=== PATIENT | female | born 1960 | race Caucasian/White ===

== ENCOUNTER 2020-01-18 16:08 | Outpatient (REF) | payer BC, SELFPAY ==
--- NOTE | 2020-01-18 14:30 | PAPFT_PTH ---
PATIENT: Belinda Chiu LOC: [facility] U#:[id number] AGE/SX: 59/F ROOM: RE01/18/[address]: Phylicia Zabala MD, DC : 1960 BED: DIS: 01/18/2020 SPEC #: [id number] RECD: 01/19/20 12:58 STATUS: YAO REQ #: [id number] FLORENCIO: 01/18/20 14:[address]: Phylicia Zabala DEPT: [facility] Cytology RECD BY: Priscilla Castanon Tissues: 1 - CX/ENDOCX FOR PAP SMEARS Procedures: PAP THIN PREP/UVM Screening HPV DNA PROBE Comments: [id number]
== END 2020-01-18 16:28 ==
LOC: LBN 16:08
PROVIDERS: PCP Family Medicine; Visit Provider Family Medicine
DX: Z12.4 Encounter for screening for malignant neoplasm of cervix (principal); Z11.51 Encounter for screening for human papillomavirus (HPV); R87.610 Atypical squamous cells of undetermined significance on cytologic smear of cervix (ASC-US)
CPT/HCPCS: 88142; 87624

== ENCOUNTER 2020-03-28 00:18 | Outpatient (CLI) | payer BC, SELFPAY ==
--- NOTE | 2020-03-28 08:16 | DI.RAD_ITS ---
EXAM: XR CHEST 2V PA LATERAL CLINICAL HISTORY: cough and wheezing,R05,R06.2 TECHNIQUE: 2D digital imaging was performed. COMPARISON: CHEST 2 VIEWS PA,LAT from 04/15/2016 FINDINGS: The heart is not enlarged. The lungs are clear and well expanded. No pleural effusion seen. Mediastin al contours appear intact. IMPRESSION: Normal chest
== END 2020-03-28 00:38 ==
PROVIDERS: PCP Family Medicine; Visit Provider Family Medicine
DX: R05 Cough (principal); R06.2 Wheezing
CPT/HCPCS: 71046

== ENCOUNTER 2020-09-07 15:07 | Emergency (ER) | payer BC, SELFPAY ==
[2020-09-07] VITALS (42 sets, daily range): BP systolic 118–158; BP diastolic 61–95; PULSE 56–84; RESP 9–27; TEMP 36.2–36.4; O2SAT 96–100
--- NOTE | 2020-09-07 15:00 | RT.EKG_ITS ---
APPROVED REPORT Exam: Resting ECG Patient Location: E HR:56 bpm ECG Measurements Heart Rate 56 AXIS CA 171 P 42 QRSd 85 QRS 30 QT 399 T 36 QTc 387 Conclusion Sinus bradycardia...rate< 60
--- NOTE | 2020-09-07 15:21 | ED.GENADUL_ITS ---
Discharge Plan Disposition Patient Disposition: HOME Condition: Stable Discharge Details Clinical Impression: Chest pain, Epigastric abdominal pain Primary Care Provider: Phylicia Zabala ED Provider: Darnell Haney Home Meds and New Rx's Prescriptions: Continued fluoxetine 20 mg capsule 20 mg PO DAILY Qty: 90 RF: 5 albuterol sulfate [ProAir HFA] 8.5 GM HFA aerosol inhaler 2 puff Inhalation Q4H PRN Qty: 1 RF: 12 aspirin 81 MG tablet,chewable 81 mg PO DAILY RF: 0 methylphenidate HCl 10 mg tablet 10 mg PO TID MDD 3 Qty: 90 RF: 0 multivitamin [Daily Multi-Vitamin] 1 EACH tablet 1 ea PO DAILY RF: 0 Discharge Instructions Instructions: Chest Pain (ED), Epigastric Pain (ED) Additional Instructions: At this time your pain has nearly completely resolved, you have remained hemodynamically stable, and your blood work, EKG, x-ray were unremarkable here in the ER. As we discussed, you will be discharged from the ER but are encouraged to return to the ER for new or worsening symptoms. Otherwise I would like you to contact your primary care provider tomorrow for prompt outpatient reevaluation. For further evaluation of possible cardiac etiology, outpatient echocardiogram and stress test may be indicated. As we discussed this may be GI related, outpatient referral to surgery and endoscopy may be beneficial Discharge Data Discharge Date/Time-TO BE ENTERED AT DEPARTURE: 09/07/20 19:39 Medical Decision Making <Kelly Nation - Last Filed: 09/09/20 08:30> 60-year-old female presents to the ED with chief complaint of chest pain which began last night around 9:00 PM. Patient describes pain as tightness midsternal which radiates into her mid epigastrium. She states she took 2 Tums and a Za ntac last night and another Zantac this morning which did relieve her pain somewhat. She is a non-smoker, has no past medical history of coronary artery disease, hypertension or anything else. He does take a baby aspirin daily she did take a chewable baby aspirin last night. She was sent here from [facility] for further work-up. She does have a history of factor V Leiden mutation. Cardiac work-up ordered at this time and is pending. D-dimer added on also to rule out PE. EKG was reviewed by [Dr. Risa FELICIANO] ER attending, please see his official reading, normal sinus rhythm sinus bradycardia no STEMI. No old available for review. Care to be handed off to Darnell KIRBY, case discussed, verbalized understanding. <KOFI Obregon - Last Filed: 09/07/20 19:23> I assumed care of this pleasant 60-year-old female at shift change from my colleague REGGIE Nation. Please see her initial HPI and examination for full presentation. In short she developed substernal and epigastric discomfort last night around 9:00. Nothing makes it worse. She took iowj-rga-fdsytbr antacids and reports that her pain went from a 7 or 8 down to a 3. Currently she reports a 2 out of 10 dull tightness. She has never had this before. She is otherwise asymptomatic. Upon my initial evaluation and reviewing her past medical history, she does fall into the low category of the heart score. Work-up has already been initiated and at the moment awaiting a d-dimer. Clinically patient appears well, nontoxic. Head normocephalic, moist mucous membranes, lungs clear to auscultation, heart regular rate and rhythm, abdomen soft, nontender, normal pedal pulses, without calf tenderness or swelling. White blood cell count of 5.58 hemoglobin 13.4 hematocrit 40.9 platelet count 229. D-dimer 483. Electrolytes unremarkable. Creatinine 1.14 with an estimated GFR 48.62. Glucose 101 calcium 9.3 magnesium 2.2 LFTs unremarkable. Initial troponin 0 0.05. Chest x-ray unremarkable per radiology. Initial EKG reveals a sinus bradycardia, ventricular rate 56. No STEMI. I discussed the work-up with patient. She is agreeable to try a GI cocktail as well as await a 3-hour troponin and EKG. Patient given the GI cocktail and approximately 5 minutes later I was called into the room, she reports that her throat feels numb. She is able to manage her secretions, she speaks normally, no respiratory distress. Lips, tongue, pharynx without swelling. Airway patent. No erythema or rash. I discussed with the patient that this is likely the effects of the medication and not an allergy. Will hold off on any Benadryl at this point. Patient was reassessed in approximately 10 minutes, remained stable. No signs of allergic reaction or decompensation. Repeat troponin remains less than 0.05. Repeat EKG obtained, please see official report by Dr. Lord. Sinus rhythm, ventricular rate of 62, no STEMI. Upon reassessment patient is resting comfortably and using her iPad. She reports that her pain is essentially gone, barely noticeable, now a 0.5 out of 10. She appears well, nontoxic. Remains hemodynamically stable. We discussed options. Patient is comfortable discharge home at this time. She will contact her primary care provider tomorrow for prompt outpatient reevaluation. We discussed that outpatient stress test and or echocardiogram may be indicated. Referral to general surgery for endoscopy may also be indicated. She was encouraged to return to the ER for new or worsening symptoms and return to the ER for any concerns. She will continue taking her baby aspirin daily. Medical Records Medical records reviewed: Yes I reviewed the patient's medical records. Imaging Data Radiologic Study: Attestation: I personally reviewed and interpreted this imaging study as f juana: Imaging: X-Ray Radiologist's impression: Chest x-ray negative Lab Data Lab results reviewed: Yes I reviewed the patient's lab results. Labs: Laboratory Tests Range/Units 09/07/20 09/07/20 09/07/20 15:13 15:13 15:13 WBC (4.4-10.8) 10^3/uL 5.58 RBC (3.93-5.22) 10^6/uL 4.74 Hgb (11.2-15.7) g/dL 13.4 Hct (36.0-46.0) % 40.9 MCV (80-95) fL 86.3 MCH (27.0-33.0) pg 28.3 MCHC (32.0-36.0) % 32.8 RDW (11.7-14.6) % 12.6 Plt Count (130-400) 10^3/uL 229 MPV (8.0-11.0) fL 10.1 Immature Gran % 0.2 Neutrophils % 55.2 Lymphocytes % 37.1 Monocytes % 6.3 Eosinophils % 0.7 Basophils % 0.5 Nucleated RBC % % 0 Absolute Neutrophils (1.2-6.7) 10^3/uL 3.08 Absolute Lymphocytes (1.2-3.4) 10^3/uL 2.07 Absolute Monocytes (0.1-0.8) 10^3/uL 0.35 Absolute Eosinophils (0.0-0.7) 10^3/uL 0.04 Absolute Basophils (0.0-0.2) 10^3/uL 0.03 D-Dimer (<500) ng/mlFEU 483 Sodium (136-145) mmol/L 141 Potassium (3.5-5.1) mmol/L 4.1 Chloride (98-107) mmol/L 102 Carbon Dioxide (21.0-32.0) mmol/L 30.4 Anion Gap (3-11) mmol/L 8.6 BUN (7-18) mg/dL 17 Creatinine (0.55-1.02) mg/dL 1.14 H Estimated GFR/1.73 m2 (mL/min/1.73m2) 48.62 Glucose (74-106) mg/dL 100 Calcium (8.5-10.1) mg/dL 9.3 Magnesium (1.8-2.4) mg/dL 2.2 Total Bilirubin (0.2-1.0) mg/dL 0.5 AST (15-37) U/L 16 ALT (14-59) U/L 26 Alkaline Phosphatase (46-116) U/L 71 Troponin I (<0.06) ng/mL < 0.05 Total Protein (6.4-8.2) g/dL 7.8 Albumin (3.4-5.0) g/dL 4.2 HPI <Kelly Nation - Last Filed: 09/09/20 08:30> General Mode of arrival: ambulatory . Date/Time Provider Initiated Documentation: 09/07/20 15:10 . Limitations to Documentation: no limitations . Information obtained by: patient . HPI Narrative: 60-year-old female presents to the ED with chief complaint of chest pain which began last night around 9:00 PM. Patient describes pain as tightness midsternal which radiates into her mid epigastrium. She states she took 2 Tums and a Zantac last night and another Zantac this morning which did relieve her pain somewhat. She is a non-smoker, has no past medical history of coronary artery disease, hypertension or anything else. He does take a baby aspirin daily she did take a chewable baby aspirin last night. She was sent here from [facility] for further work-up. She does have a history of factor V Leiden mutation. Related Data Home Medications Medication Instructions Recorded Confirmed multivitamin [Daily Multi-Vitamin] 1 ea PO DAILY 05/06/14 09/07/20 albuterol sulfate [ProAir HFA] 2 puff INHALATION Q4H PRN #1 08/19/16 09/07/20 inhaler aspirin 81 mg PO DAILY tab-cap 03/18/17 09/07/20 fluoxetine 20 mg capsule 20 mg PO DAILY #90 tab-cap 01/18/20 09/07/20 methylphenidate HCl 10 mg tablet 10 mg PO TID #90 tab MDD 3 07/09/20 09/07/20 Previous Rx's Medication Instructions Recorded fluoxetine 20 mg capsule 20 mg PO DAILY #90 tab-cap 01/18/20 methylphenidate HCl 10 mg tablet 10 mg PO TID #90 tab MDD 3 07/09/20 Allergies Allergy/AdvReac Type Severity Reaction Status Date / Time doxycycline Allergy Intermediate RASH Verified 09/07/20 15:21 W/ITCHING ALL OVER Sulfa (Sulfonamide Allergy Unknown SWELLING Verified 09/07/20 15:21 Antibiotics) General Stated Complaint: Chest Pain THERON: 2 Review of Systems <Kelly Nation - Last Filed: 09/09/20 08:30> Narrative: Constitutional: Negative for weight loss, alert and oriented, well groomed, normal body habitus, appears comfortable. HEENT: Denies trauma, headaches, blurry vision, nasal discharge, sore throat, trouble swallowing. Chest: Denies palpitations, irregular rhythm, hypertension. Positive chest pain described as midsternal which radiates into her midepigastrium. Respiratory: Denies Shortness of breath, cough, hemoptysis. GI: Denies abdominal pain, nausea, vomiting, diarrhea, constipation. : Denies dysuria, hematuria, flank pain, rectal bleeding. Neuro: Denies dizziness, blurry vision, weakness, syncope, headache or facial numbness. Hematologic: Denies intolerance to heat or cold, hair loss. Does have a history of factor V Leiden. 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) Degeneration of cervical intervertebral disc (03/03/08) Cervical MRI-DDD showing neuroforaminal encroachment C3-4 on left; C6-7 on right Depressive disorder Family history of factor V Leiden mutation (02/19/16) she has 1 copy of gene 1 miscarriage will consider hematology consult Fatigue Lipoma right thigh posterior Neuropathy (08/28/15) Polyp of colon 12/17/10; TUBULAR ADENOMA 05/06/14; NEG Right hip pain (01/06/18) Urinary, incontinence, stress female urinary frequency; Urologist recommended sling procedure Uterine leiomyoma (03/03/08) Surgical History bunionectomy b/l eye surgery 3 eye surgeries for alignment, central serous retinopathy Tonsillectomy and adenoidectomy Family History Mother Blind one eye Substance abuse FORMER Essential hypertension Depression Hyperlipidemia Father Essential hypertension Heart disease Hyperlipidemia Neoplasm BLADDER Stroke Brother Depression Brother Factor 5 Leiden mutation, heterozygous Grandfather Essential hypertension Heart disease Hyperlipidemia Neoplasm PROSTATE Grandfather Heart disease Myocardial infarction Stroke Grandmother Essential hypertension Heart disease Stroke Grandmother Heart disease Myocardial infarction Son Depression Son Depression Daughter No problems noted. Social History Smoking/Tobacco Use Status: Never Alcohol Intake: current Alcohol Intake frequency: a few times a week Drug use: Never Substance use type: does not use Household members: other Details: 4 current occupation: Self employed Duration: 30-45 minutes/day Frequency: 3-4 times per week Yanira/Roman Catholic: Alevism Special yanira needs: No Do you feel safe at home: Yes Do you feel safe in your relationship?: Yes Exam <Kelly Nation - Last Filed: 09/09/20 08:30> Narrative Exam Narrative: Constitutional: Alert and oriented x3. Appears stated age. Normal body habitus. Head: Normocephalic, no trauma. Eyes: Pupils PERRLA, Red reflex noted, EOM's intact. Eyelids symmetrical without lesions, discharge, or swelling. ENT: Bilateral TM's WNL, External ear normal to inspection, no mastoid TTP, swelling, or erythema, Nasal turbinates WNL, no nasal discharge. Normal dentition, Posterior pharynx WNL, no exudate. Chest: RRR, Normal S1, S2, distal pulses intact. Resp: Lungs clear to auscultation bilaterally, no wheezes, rales, or rhonchi. Musculoskeletal: Normal gait, 5/5 strength to all four extremities. Skin: No suspicious rashes or lesions. Capillary refill less than 2 sec. Neurologic: Cranial nerves II-XII intact. Alert and oriented x 3. DTR's intact. Hematologic/Lymphatic: No ecchymosis, no lymphadenopathy. Course <Kelly Nation - Last Filed: 09/09/20 08:30> Vital Signs Vital signs: Vital Signs Temperature 36.2 C L 09/07/20 15:16 Pulse 71 09/07/20 15:16 Respiratory Rate 15 09/07/20 15:16 Blood Pressure 158/79 H 09/07/20 15:16 Pulse Oximetry 98 09/07/20 15:16 Temperature 36.2 C L 09/07/20 15:16 Temperature Source Temporal Artery Scan 09/07/20 15:16 Pulse 71 09/07/20 15:16 Respiratory Rate 15 09/07/20 15:16 Respiratory Effort Non-Labored 09/07/20 15:20 Blood Pressure 158/79 H 09/07/20 15:16 Blood Pressure Position Supine 09/07/20 15:16 Pulse Oximetry 98 09/07/20 15:16 Oxygen Delivery Method Room Air 09/07/20 15:16 Oxygen Flow Rate 0 09/07/20 15:16 Pain Level 3 09/07/20 15:16 Sign Out <Kelly Nation - Last Filed: 09/09/20 08:30> Sign Out Data: Sign Out Comment: Pending Serial Troponin and Disposition Last updated by Kelly Nation at 09/07/20 16:03
[2020-09-07 15:28] LABS: Abs Immature Grans 0.01 10^3/uL (0.0-0.06); Absolute Basophil Count 0.03 10^3/uL (0.0-0.2); Absolute Eosinophil Count 0.04 10^3/uL (0.0-0.7); Absolute Lymphocyte Count 2.07 10^3/uL (1.2-3.4); Absolute Monocyte Count 0.35 10^3/uL (0.1-0.8); Absolute Neutrophil Count 3.08 10^3/uL (1.2-6.7); Basophils % 0.5; Eosinophils % 0.7; HCT 40.9 % (36.0-46.0); HGB 13.4 g/dL (11.2-15.7); Immature Grans % 0.2; Lymphocytes % 37.1; MCH 28.3 pg (27.0-33.0); MCHC 32.8 % (32.0-36.0); MCV 86.3 fL (80-95); MPV 10.1 fL (8.0-11.0); Monocytes % 6.3; Neutrophils % 55.2; Nucleated RBC 0 %; Platelet Count 229 10^3/uL (130-400); RBC 4.74 10^6/uL (3.93-5.22); RDW 12.6 % (11.7-14.6); RDW-SD 39.8 fL; WBC 5.58 10^3/uL (4.4-10.8)
--- NOTE | 2020-09-07 15:30 | DI.RAD_ITS ---
EXAM: XR PORTABLE CHEST AP CLINICAL HISTORY: Chest pain, PUI. TECHNIQUE: 2D digital imaging was performed. COMPARISON: CR XR CHEST 2V PA LATERAL from 03/28/2020 FINDINGS: LUNGS: Clear. No pleural abnormality seen. HEART: Normal. MEDIASTINUM: Normal. OTHER FINDINGS: None. IMPRESSION: No acute pulmonary findings. DATA REPOSITORY: RADIATION DOSE DELIVERED: Total DLP
[2020-09-07] MEDS: Aspirin 81 MG CHEW 324 MG CH (15:33)
[2020-09-07] MEDS: Aspirin 81 MG CHEW (15:36)
[2020-09-07] MEDS: Normal Saline Flush 10 ML SYR IVP (15:37)
[2020-09-07 15:53] LABS: ALT 26 U/L (14-59); AST 16 U/L (15-37); Albumin 4.2 g/dL (3.4-5.0); Alkaline Phosphatase 71 U/L (46-116); Anion Gap 8.6 mmol/L (3-11); BUN 17 mg/dL (7-18); Bilirubin, Total 0.5 mg/dL (0.2-1.0); CO2 30.4 mmol/L (21.0-32.0); CREATININE 1.14 mg/dL (0.55-1.02); Calcium 9.3 mg/dL (8.5-10.1); Chloride 102 mmol/L (98-107); Estimated GFR 48.62 (mL/min/1.73m2); Glucose 100 mg/dL (74-106); Magnesium 2.2 mg/dL (1.8-2.4); Potassium 4.1 mmol/L (3.5-5.1); Sodium 141 mmol/L (136-145); Total Protein 7.8 g/dL (6.4-8.2)
[2020-09-07 15:54] LABS: Troponin I < 0.05 ng/mL (<0.06)
[2020-09-07 16:19] LABS: D-Dimer 483 ng/mlFEU (<500)
--- NOTE | 2020-09-07 17:05 | NUR.NOTE ---
pt offered meal but declined Nursing Note:
[2020-09-07 18:43] LABS: Troponin I < 0.05 ng/mL (<0.06)
--- NOTE | 2020-09-07 18:45 | RT.EKG_ITS ---
APPROVED REPORT Exam: Resting ECG Patient Location: E HR:62 bpm ECG Measurements Heart Rate 62 AXIS NV 176 P 64 QRSd 80 QRS 33 QT 404 T 32 QTc 411 Conclusion Sinus rhythm...normal P axis, V-rate 60- 99
== END 2020-09-07 19:39 | disposition home or self-care (01) ==
PROVIDERS: Registered Nurse Emergency; Emergency Provider Physician Assistant; PCP Family Medicine
DX: R07.89 Other chest pain (principal); R10.13 Epigastric pain
CPT/HCPCS: 36415; 80053; 93005; 99285; 71045; 83735; 84484; 85025; 85379; 93010; 99284

== ENCOUNTER 2022-03-13 01:15 | Outpatient (CLI) | payer BC, SELFPAY ==
--- NOTE | 2022-03-13 11:21 | DI.MAMMO_ITS ---
Exam(s) MAMMO SCREENING EXAM: MAMMO SCREENING CLINICAL HISTORY: screening,z12.39 TECHNIQUE: Mammograms were interpreted according to the usual protocol including computer analysis w [employer] CAD system, tomosynthesis and C-view imaging. COMPARISON: 2012 through 2015 FINDINGS: The breasts are composed of scattered fibroglandular densities, Breast Density category B. No suspicious masses or suspicious microcalcifications are seen. No skin thickening or abnormal axillary lymph nodes are seen. There has been no significant change from prior exams. IMPRESSION: BI-RADS Category 1, Negative mammogram Yearly screening mammography is recommended. Breast Density - Category B, scattered fibroglandular densities. A negative radiographic report should not delay biopsy if a dominant or clinically suspicious mass is present. Up to ten percent of cancers are not identified on mammography. A negative report may reinforce clinical impression. Adenosis and dense breasts may obscure an underlying neoplasm. False positive reports average 6 to 10%. Patient will receive a letter notifying them of these results.
== END 2022-03-13 01:35 ==
PROVIDERS: PCP Family Medicine; Visit Provider Family Medicine
DX: Z12.31 Encounter for screening mammogram for malignant neoplasm of breast (principal)
CPT/HCPCS: 77063; 77067

== ENCOUNTER → 2022-05-23 02:14 | Outpatient (CLI) | payer BC, SELFPAY ==
--- NOTE | 2022-05-23 08:30 | DI.DEXA_ITS ---
Exam(s) XR DEXA BONE DENSITY W/WO CARYN EXAM: XR DEXA BONE DENSITY W/WO CARYN CLINICAL HISTORY: osteoporosis, Z00.00, ANNUAL PHYSICAL EXAM TECHNIQUE: [employer] Horizon C densitometer analysis of left hip, lumbar spine and left forearm. COMPARISON: No exams were available for comparison FINDINGS: Lateral view of the thoracic and lumbar spine shows no evidence of compression fractures. Bone mineral density measurements of the lumbar spine correspond to a total T-score of 1.5, in the n ormal range. Bone mineral density measurements of the left hip correspond to a total T-score of -0.2. The femora l neck T-score is -1.1, in the mildly osteopenic range.. The left forearm bone mineral density measurements correspond to a T-score of the distal 3rd of -0.1 , in the normal range.. IMPRESSION: Normal bone mineral density of the left forearm and lumbar spine. Mild osteopenia of left hip.
== END ==
PROVIDERS: PCP Family Medicine; Visit Provider Family Medicine
DX: Z00.00 Encounter for general adult medical examination without abnormal findings (principal); M85.88 Other specified disorders of bone density and structure, other site
CPT/HCPCS: 77080

== ENCOUNTER 2022-06-27 03:09 | Outpatient (CLI) | payer BC, SELFPAY ==
[2022-06-27 08:46] LABS: ESR 4 mm/hr (0-30); HCT 38.4 % (36.0-46.0); HGB 12.6 g/dL (11.2-15.7); MCH 28.3 pg (27.0-33.0); MCHC 32.8 % (32.0-36.0); MCV 86 fL (80-95); MPV 10.5 fL (8.0-11.0); Platelet Count 219 10^3/uL (130-400); RBC 4.45 10^6/uL (3.93-5.22); RDW 12.7 % (11.7-14.6); RDW-SD 39.8 fL; WBC 5.12 10^3/uL (4.4-10.8)
[2022-06-27 09:52] LABS: ALT 24 U/L (14-59); AST 19 U/L (15-37); Albumin 3.9 g/dL (3.4-5.0); Alkaline Phosphatase 63 U/L (46-116); Anion Gap 7.1 mmol/L (3-11); BUN 15 mg/dL (7-18); Bilirubin, Total 0.4 mg/dL (0.2-1.0); CO2 29.9 mmol/L (21.0-32.0); CREATININE 1.2 mg/dL (0.55-1.02); Calcium 8.7 mg/dL (8.5-10.1); Calculated LDL 175 mg/dL (<100); Chloride 104 mmol/L (98-107); Cholesterol 248 mg/dL (<200); Estimated GFR 45.52 (mL/min/1.73m2); Glucose 93 mg/dL (74-106); HDL Cholesterol 55 mg/dL (40-60); Sodium 141 mmol/L (136-145); Total Protein 7.2 g/dL (6.4-8.2); Triglyceride 90 mg/dL (<150)
[2022-06-27 20:40] LABS: Rheumatoid Factor 22.3 IU/mL (<12.0)
[2022-06-28 13:37] LABS: Albumin 63.3 % (55.8-66.1); Albumin g/dL 4.4 g/dL (3.6-5.2); Total Protein 6.9 g/dL (6.3-8.2)
[2022-06-28 15:28] LABS: ANA Interpretation Positive (Negative); ANA Titer Pattern 1:80 Speckled
[2022-07-02 13:46] LABS: SS-B (La) Ab, IgG 1.6 Units (<20.0)
[2022-07-02 15:38] LABS: SS-A Antibody 1.2 Units (<20.0)
== END 2022-06-27 03:10 | disposition home or self-care (01) ==
LOC: LBO 03:09
PROVIDERS: PCP Family Medicine; Visit Provider Family Medicine
DX: H04.129 Dry eye syndrome of unspecified lacrimal gland (principal); Z00.00 Encounter for general adult medical examination without abnormal findings
CPT/HCPCS: 36415; 80053; 80061; 85027; 85652; 81003; 84165; 86038; 86235; 86431

== ENCOUNTER 2023-05-19 10:18 | Outpatient (REF) | payer BC, SELFPAY ==
--- NOTE | 2023-05-19 09:30 | PAPFT_PTH ---
PATIENT: Belinda Chiu LOC: [facility] U#:[id number] AGE/SX: 62/F ROOM: RE05/19/[address]: Phylicia Zabala MD, DC : 1960 BED: DIS: 05/19/2023 SPEC #: [id number] RECD: 05/19/23 12:51 STATUS: YAO REMook #: [id number] FLORENCIO: 05/19/23 09:[address]: Phylicia Zabala DEPT: [facility] Cytology RECD BY: Priscilla Castanon Tissues: 1 - CX/ENDOCX FOR PAP SMEARS Procedures: PAP THIN PREP/UVM Screening HPV DNA PROBE Comments: [id number]
== END 2023-05-19 10:19 | disposition home or self-care (01) ==
LOC: LBN 10:18
PROVIDERS: PCP Family Medicine; Visit Provider Family Medicine
DX: Z11.51 Encounter for screening for human papillomavirus (HPV) (principal)
CPT/HCPCS: 88142; 87624

== ENCOUNTER 2023-11-18 08:01 | Outpatient (CLI) | payer BC, SELFPAY ==
[2023-11-18 12:48] LABS: ALT 37 U/L (14-59); AST 22 U/L (15-37); Albumin 3.9 g/dL (3.4-5.0); Alkaline Phosphatase 70 U/L (46-116); Anion Gap 6.3 mmol/L (3-11); BUN 15 mg/dL (7-18); Bilirubin, Total 0.5 mg/dL (0.2-1.0); CO2 29.7 mmol/L (21.0-32.0); CREATININE 1.1 mg/dL (0.55-1.02); Calcium 9.1 mg/dL (8.5-10.1); Calculated LDL 220 mg/dL (<100); Chloride 103 mmol/L (98-107); Cholesterol 321 mg/dL (<200); Estimated GFR 56.46 (mL/min/1.73m2); Glucose 108 mg/dL (74-106); HDL Cholesterol 55 mg/dL (40-60); Potassium 3.8 mmol/L (3.5-5.1); Sodium 139 mmol/L (136-145); Total Protein 7.6 g/dL (6.4-8.2); Triglyceride 232 mg/dL (<150)
[2023-11-20 14:37] LABS: Apolipoprotein A1, S 143 mg/dL (>=140); Apolipoprotein B, S 168 mg/dL (See Comment); Apolipoprotein B/A 1 ratio 1.2 (See Comment)
== END 2023-11-18 08:02 | disposition home or self-care (01) ==
LOC: LOS 08:02
PROVIDERS: PCP Family Medicine; Visit Provider Family Medicine
DX: Z00.00 Encounter for general adult medical examination without abnormal findings (principal); E78.00 Pure hypercholesterolemia, unspecified; I10 Essential (primary) hypertension; D68.51 Activated protein C resistance
CPT/HCPCS: 36415; 80053; 80061; 82172

== ENCOUNTER → 2024-05-07 19:21 | Outpatient (CLI) | payer BC, SELFPAY ==
--- NOTE | 2024-05-07 19:35 | DI.RAD_ITS ---
Exam(s) XR LUMBAR SPINE COMPLETE EXAM: XR LUMBAR SPINE COMPLETE CLINICAL HISTORY: evaluate pathology. TECHNIQUE: 2D digital imaging was performed. COMPARISON: CR XR DEXA BONE DENSITY W/WO CARYN from 05/23/2022 FINDINGS: Five views: There is no evidence of fracture, listhesis, nor pars defects. There is a scoliosis convex left. Ep icenter is at L2-3 level where there is asymmetric narrowing of the right-side of this disc space.. There is moderate narrowing of the L2-3 disc space and more prominent narrowing of L1-2 disc space. Lower disc spaces exhibit normal height. There are mild-moderate degenerative changes in the facet j oints at the lower 3 levels. Sacroiliac joints appear unremarkable. Bone density normal. No osseou s lesions. IMPRESSION: Degenerative disc disease at L 1-2 and L2-3 levels. There is asymmetric narrowing of the right-side of the L2-3 disc space which may be associated with right-sided foraminal stenosis. This is the epic enter of the mild levoconvex lumbar scoliosis in this patient. DATA REPOSITORY: RADIATION DOSE DELIVERED:
--- NOTE | 2024-05-07 20:07 | DI.VRAD_ITS ---
PROCEDURE INFORMATION: Exam: XR Lumbosacral Spine Exam date and time: 05/07/2024 7:42 PM Age: 63 years old Clinical indication: Other: Evaluate pathology TECHNIQUE: Imaging protocol: Radiologic exam of the lumbosacral spine. Views: 4 or 5 views. Total images: 5 COMPARISON: CR RT HIP COMPLETE AP PELVIS 11/21/2017 10:17 AM FINDINGS: Bones/joints: Lumbar levoscoliosis. Significant disc space narrowing at L1-L2 and moderate disc space narrowing at L2-L3. Associated endplate spondylosis. No bony destruction. No compression fracture. Soft tissues: Unremarkable. IMPRESSION: L1-L2 and L2-L3 degenerative disc disease. Dictated and Authenticated by: Austen Lyle MD. Ordering:MARYELLEN Nava MD
== END ==
PROVIDERS: PCP Family Medicine; Visit Provider Nurse Practitioner Family
DX: M54.59 Other low back pain (principal); M51.36 Other intervertebral disc degeneration, lumbar region; M41.86 Other forms of scoliosis, lumbar region; M47.816 Spondylosis without myelopathy or radiculopathy, lumbar region
CPT/HCPCS: 72110

== ENCOUNTER 2024-06-16 09:27 | Outpatient (CLI) | payer BC, SELFPAY ==
[2024-06-16 10:09] LABS: Hemoglobin A1C 5.9 % (<5.7)
[2024-06-16 10:20] LABS: Calculated LDL 106 mg/dL (<100); Cholesterol 187 mg/dL (<200); HDL Cholesterol 51 mg/dL (40-60); Triglyceride 150 mg/dL (<150)
[2024-06-18 10:56] LABS: Apolipoprotein A1, S 133 mg/dL (>=140); Apolipoprotein B, S 90 mg/dL (See Comment); Apolipoprotein B/A 1 ratio 0.7 (See Comment)
== END 2024-06-16 09:28 | disposition home or self-care (01) ==
LOC: LBO 09:28
PROVIDERS: PCP Family Medicine; Visit Provider Family Medicine
DX: E78.00 Pure hypercholesterolemia, unspecified (principal); E11.9 Type 2 diabetes mellitus without complications; I10 Essential (primary) hypertension
CPT/HCPCS: 36415; 80061; 82172; 83036

== ENCOUNTER 2024-07-09 00:34 | Outpatient (CLI) | payer BC, SELFPAY ==
--- OUTSIDE RECORDS SUMMARY | 2024-07-09 00:36 | XMS_ITS | Clinical Summary ---
Author Organization [facility] Address [facility] [place] [address] Care Team Providers Care Jet Dyeing Machine Operator Name Role Phone Phylicia Zabala MD Primary Care Provider [phone] Allergies Active Allergy Reactions Criticality Noted Date Comments Doxycycline Rash 02/17/2017 Sulfa (Sulfonamide Antibiotics) CIS - Edema Medications Medication Sig Dispensed Refills Start Date End Date Status loratadine (CLARITIN) 10 mg tablet 12/03/2005 Active FLUOXETINE HCL (PROZAC ORAL) 04/16/2007 Active aspirin 81 mg Tablet, Delayed Release (E.C.) Take 81 mg by mouth daily. Active multivitamin (THERAGRAN) Tablet Take 1 tablet by mouth daily. Active fish oil-omega-3 fatty acids 1,000 mg Capsule Take 2 g by mouth daily. Active calcium-vitamin D 500 mg(1,250mg) -200 unit Tablet Take 1 tablet by mouth 2 times daily (with meals). Active fluorouracil (EFUDEX) 5 % CreamIndications:AK (actinic keratosis) Apply a small amount to the affected area on face, twice daily for 4 days. Wash hands after each use. 40 g 03/19/2018 Active calcipotriene (DOVONEX) 0.005 % CreamIndications:AK (actinic keratosis) Mix with Efudex, apply a small amount to the affected area on face twice daily x 4 days. 60 g 03/19/2018 Active urea (CARMOL) 20 % CreamIndications:Ker atosis pilaris Apply topically as needed. To rough areas on the backs of the arms 85 g 03/19/2018 Active Additional Information Patient not taking.Reported on 07/20/2020 ketoconazole (NIZORAL) 2 % CreamIndications:Tin ea pedis of right foot Twice daily to the affected foot till clear 30 g 07/01/2018 Active Additional Information Patient not taking.Reported on 07/20/2020 Active Problems Problem Noted Date Diagnosed Date Sicca 10/02/2022 Social History Tobacco Use Types Packs/Day Years Used Date Smoking Tobacco: Never Smokeless Tobacco: Never Sex and Gender Information Value Date Recorded Sex Assigned at Not on file Gender Identity Not on file Sexual Orientation Not on file Last Filed Vital Signs Vital Sign Reading Time Taken Comments Blood Pressure 130/72 10/02/2022 8:04 AM EDT Pulse 60 10/02/2022 8:04 AM EDT Temperature 35.7 ??C (96.3 ??F) 10/02/2022 8:04 AM ED T Respiratory Rate - - Oxygen Saturation 100% 10/02/2022 8:04 AM EDT Inhaled Oxygen Concentration - - Weight 65.8 kg (145 lb) 10/02/2022 8:04 AM EDT Height 165.1 cm (5' 5) 10/02/2022 8:04 AM EDT Body Mass Index 24.13 10/02/2022 8:04 AM EDT Plan of Treatment Health Maintenance Due Date Last Done Comments CT Colonography 1960 Colonoscopy 1960 Colorectal Cancer Screening 1960 FIT DNA 1960 FIT 1960 Sigmoidoscopy (10 year) with FIT yearly 1960 Sigmoidoscopy 1960 HIV screen 1978 Hepatitis C Screening 1978 Tdap adult 1979 Tetanus vaccine 1979 HPV test 1990 PAP Smear 1990 Breast Cancer Share Decision Needed 2000 Breast Cancer screening 2000 Zoster vaccine (1 of 2) 2010 Advance Directive 2015 Covid-19 Vaccine (2022-24 season) 2023 Influenza (Flu) vaccine (1 o f 1 - Influenza standard series) 08/01/2024 Care Teams Jet Dyeing Machine Operator Relationship Specialty Start Date End Date Phylicia Zabala MD [address] [place] [address] PCP - General 10/23/10
--- OUTSIDE RECORDS SUMMARY | 2024-07-09 00:36 | XMS_ITS | Encounter Summary ---
Author Organization [facility] [place] [address] Care Team Providers Care Forester Aide Name Role Phone Phylicia Zabala MD Primary Care Provider [phone] Encounter Details Date Type Department Care Team (Latest Contact Info) Description 10/02/2022 Travel Social History Tobacco Use Types Packs/Day Years Used Date Smoking Tobacco: Never Smokeless Tobacco: Never Sex and Gender Information Value Date Recorded Sex Assigned at Not on file Gender Identity Not on file Sexual Orientation Not on file documented as of this encounter Plan of Treatment Not on file documented as of this encounter Visit Diagnoses Not on filedocumented in this encounter Care Teams Forester Aide Relationship Specialty Start Date End Date Phylicia Zabala MD [address] [place] [address] [address] [place] [address] PCP - General 10/23/10 documented as of this encounter
--- OUTSIDE RECORDS SUMMARY | 2024-07-09 00:36 | XMS_ITS | Encounter Summary ---
Author Organization [facility] Address [address] [place] [address] Care Team Providers Care Guard Driver Name Role Phone Phylicia Zabala MD Primary Care Provider [phone] Phylicia Zabala MD Unavailable [phone] Encounter Details Date Type Department Care Team (Late st Contact Info) Description 03/18/2017 Results Only [facility] [phone] Phylicia Zabala MD [address] [place] [address] [address] [place] [phone] Social History Tobacco Use Types Packs/Day Years Used Date Smoking Tobacco: Never Assessed Sex and Gender Information Value Date Recorded Sex Assigned at Not on file Gender Identity Not on file Sexual Orientation Not on file documented as of this encounter Plan of Treatment Not on file documented as of this encounter Procedures Procedure Name Priority Date/Time Associated Diagnosis Comments PAP TEST- RESULT ONLY Routine 03/18/2017 0:00 EDT documented in this encounter Results * PAP TEST- RESULT ONLY (03/18/2017 0:00 EDT) Pathology Report: CYTOPATHOLOGY REPORT Reports generated via electronic interface contain original data; however they are lacking the format of the original report. Caution should be taken when reading/interpreti ng unformatted reports. Name: ? CASA, D ALEENA ? Accession #: ? [id number] ? : ? 1960 (Age: 56) ??F ?Collect Date: ? 03/18/2017 ? Location: ? [facility] ? Receive Date: ? 03/19/2017 ? Provider: PHYLICIA ZABALA MD Copy to: ? Final Report SPECIMEN ADEQUACY ? Satisfactory for Evaluation - transformation zone component present - scant squamous epithelial component - obscuring contamination, possibly lubricant GENERAL CATEGORIZATION ? Negative for Intraepithelial Lesion or Malignancy ?? Menstrual/Pregnanc y Status: ??Post Menopausal Hormonal/Contracep tive status: None Previous Gynecologic Pathology: LSIL: 2008 ASC-US: 2009 Infection History: Neg for HPV: 2007 Specimen/Source: ??Pap Test, Cervix/Endocervix, ThinPrep Imaging System with manual evaluation Document reviewed and electronically signed by: ? Tim Mata, YAZMIN(ASCP) ? Report ??Date: 03/28/2017 14:21 HPV with Pap Test ? Date Ordered: ? 03/28/2017 ? Status: ?? Signed Out ?Date Complete: ? 04/01/2017 ? By: ??System Interface ? Date Reported: ? 04/01/2017 ? Interpretation RESULT: Negative for HPV. No E6 or E7 mRNA is detected from HPV types 16,18,31,33,35, 39,45,51,52,56,58, 59,66, and 68 by director of aviation mediated amplification. Comments Document reviewed and electronically signed by: ? System Interface ? Report date: 04/01/2017 By the signature above, the attending physician certifies that he/she has personally conducted a gross and/or microscopic examination of the described specimens and rendered or confirmed the above diagnosis. End of Report [facility] 03/18/2017 03/19/2017 Phylicia Zabala MD PATHOLOGY ORDERABLE S Performing Organization Address City/State/[facility] Co de Phone Number [facility] [address] [place] [address] documented in this encounter Visit Diagnoses Not on filedocumented in this encounter Care Teams Guard Driver Relationship Specialty Start Date End Date Phylicia Zabala MD PCP - General 05/27/16 Phylicia Zabala MD [address] [place] [address] [address] [place] [address] 05/21/16 documented as of this encounter
--- OUTSIDE RECORDS SUMMARY | 2024-07-09 00:36 | XMS_ITS | Encounter Summary ---
Author Organization [facility] [place] [address] Care Team Providers Care Latent Fingerprint Examiner Name Role Phone Phylicia Zabala MD Primary Care Provider [phone] Encounter Details Date Type Department Care Team (Late st Contact Info) Description 07/20/2020 10:30 AM EDT Office Visit Dermatology at [facility] [address] [place] [address] Fermin Dominguez MD [facility] [address] [place] [address] SK (seborrheic keratosis); Actinic keratoses; Lentigines; History of SCC (squamous cell carcinoma) of skin Social History Tobacco Use Types Packs/Day Years Used Date Smoking Tobacco: Never Smokeless Tobacco: Never Sex and Gender Information Value Date Recorded Sex Assigned at Not on file Gender Identity Not on file Sexual Orientation Not on file documented as of this encounter Progress Notes * Fermin Dominguez MD - 07/20/2020 10:30 AM EDT Images from the original note were not included. DERMATOLOGY - ESTABLISHED PATIENT FOLLOW-UP Date of service: 07/20/2020 Adelfo Chiu : 1960, 60 y.o. CC: full skin exam HPI: Adelfo Chiu is a 60 y.o. female last seen by myself on 12/16/18. Ms. Chiu returns today for a full skin exam; she notes that she has some spots on the lips, se has treated them in the past with Efudex and dovonex, she tried to treat with the Efudex and Dovonex which did not really do anything for her, she notes that they arenot itchy or painful, but they are flaky; spot on the posterior left thigh, present since this summer, was painful, it seems to be mostly healed over; she also notes that her skin is dry, she uses CeraVe cream and bath and body works moisturizer, She has not noted any other new, growing, changing, bleeding, painful or otherwise symptomatic moles or other lesions. She has not noted any other changes in any preexisting lesions. Ok to leave a detailed message? Yes Is there anyone eye with who we can share your labs and/or biopsy results with? no Relevant Skin History: H/o SCC with KA features,??right forearm s/p ED&C 03/2007 ? Major past medical history from patient's perspective Factor five Leiden mutation ?? Family History: Melanoma: No ?? Social History: - Self Employed, [employer] Medications: Current Outpatient Medications Medication Sig Dispense Refill ??? ketoconazole (NIZORAL) 2 % Cream Twice daily to the affected foot till clear 30 g 0 ??? fluorouracil (EFUDEX) 5 % Cream Apply a small amount to the affected area on face, twice daily for 4 days. Wash hands after each use. 40 g 0 ??? calcipotriene (DOVONEX) 0.005 % Cream Mix with Efudex, apply a small amount to the affected area on face twice daily x 4 days. 60 g 0 ??? urea (CARMOL) 20 % Cream Apply topically as needed. To rough areas on the backs of the arms 85 g 0 ??? aspirin 81 mg Tablet, Delayed Release (E.C.) Take 81 mg by mouth daily. ??? multivitamin (THERAGRAN) Tablet Take 1 tablet by mouth daily. ??? fish oil-omega-3 fatty acids 1,000 mg Capsule Take 2 g by mouth daily. ??? calcium-vitamin D 500 mg(1,250mg) -200 unit Tablet Take 1 tablet by mouth 2 times daily (with meals). ??? FLUOXETINE HCL (PROZAC ORAL) ??? loratadine (CLARITIN) 10 mg tablet (Patient not taking: No sig reported) No current facility-administered medications for this visit. Allergies: Allergies Allergen Reactions ??? Doxycycline Rash ??? Sulfa (Sulfonamide Antibiotics) CIS - Edema Review of Systems: - General: Feels well. - Skin: No other skin concerns. Examination: - Constitutional: Patient was alert, well-appearing and in no noticeable distress. - Skin: Skin examination of the scalp, face, ears, neck, back, chest, abdomen, right and left upperextremities, right and left lower extremities, hands, feet, and buttocks was normal with the exception of the findings listed below. Genitalia not examined. Diagnosis/Skin findings/Assessment/Plan: #. Seborrheic Keratoses - Multiple 0.4-0.6cm brown papules with waxy, stuck-on appearance - Benign. No treatment necessary. - Reassured about benign nature and natural history. #. Hx of Actinic Chilitis Actinic- faint erythematous macules with fine scale on cutaneous lip. Prior hx of treatment with field therapy with strong response. No tenderness or induration on ex - if not reacting to Dovonex/efudex cream, okay to apply BID x10 days #. Solar Lentigines - Sun exposed areas: 0.3-0.6cm light-brown evenly pigmented, well-demarcated macules. - Benign. No treatment necessary. - Reassured about benign nature and natural history. - Sun avoidance, protective clothing and the use of SPF 30+ sunscreen is advised. Observe closely for skin changes and call if such occurs. # H/O SCC - well healed scar on the right forearm - NER. Pt reassured RTC: 1 year for FSE Note initiated by Yoan Cárdenas CMA. Clinical scribe: Da Eddy - I am documenting this encounter acting as the scribe for and in the presence of Fermin Dominguez MD. I performed the above scribed service and agree with the accuracy of the documentation in this encounter. Reviewed and signed by Fermin Dominguez MD Department of Dermatology [facility] documented in this encounter Plan of Treatment Not on file documented as of this encounter Visit Diagnoses Diagnosis SK (seborrheic keratosis) Other seborrheic keratosis Actinic keratoses Actinic keratosis Lentigines Other dyschromia History of SCC (squamous cell carcinoma) of skin Personal history of other malignant neoplasm of skin documented in this encounter Care Teams Latent Fingerprint Examiner Relationship Specialty Start Date End Date Phylicia Zabala MD [address] [place] [address] PCP - General 10/23/10 documented as of this encounter
--- OUTSIDE RECORDS SUMMARY | 2024-07-09 00:36 | XMS_ITS | Encounter Summary ---
Author Organization [facility] Address [address] [place] [address] Care Team Providers Care Mechanical Project Manager Name Role Phone Phylicia Zabala MD Primary Care Provider [phone] Unknown, Provider Primary Care Provider [phone] Phylicia Zabala MD Unavailable [phone] Encounter Details Date Type Department Care Team (Late st Contact Info) Description 05/20/2016 Results Only [facility] [phone] Britt Barahona, [address] [place] [address] Social History Tobacco Use Types Packs/Day Years Used Date Smoking Tobacco: Never Assessed Sex and Gender Information Value Date Recorded Sex Assigned at Not on file Gender Identity Not on file Sexual Orientation Not on file documented as of this encounter Plan of Treatment Not on file documented as of this encounter Procedures Procedure Name Priority Date/Time Associated Diagnosis Comments SURGICAL PATHOLOGY Routine 05/20/2016 9:28 EDT documented in this encounter Results * SURGICAL PATHOLOGY (05/20/2016 9:28 EDT) Pathology Report: SURGICAL PATHOLOGY REPORT Reports generated via electronic interface contain original data; however they are lacking the format of the original report. Caution should be taken when reading/interpreting unformatted reports. Name: ? BRENDEN CHIU ? Accession #: ? [id number] ? : ? 1970 (Age: 45) ??F ? Collect Date: ? 05/20/2016 ? Location: ? [facility] ? Receive Date: ? 05/21/2016 ? Provider: BRITT BARAHONA DO Copy to: PHYLICIA ZABALA MD ? Final Pathologic Diagnosis: MUCOSA OF LIP, RIGHT LOWER, SHAVE BIOPSY: - Actinic cheilitis. ?? Microscopic Description: The stratum corneum is thickened by orthohyperkeratosis with foci of parakeratosis. ??The epidermis is focally thickened with elongate and bulbous rete ridges. ??The basal keratinocytes show a variable degree of atypia including nuclear enlargement, dispolarity, and hyperchromasia. ??The dermis is marked by solar elastosis, vascular ectasia and a lymphohistiocytic infiltrate. ??(Dr. Woodard)/n Document reviewed and electronically signed by: ZAFAR WOODARD MD Report ??Date: 2016 17:13 By the signature above, the attending physician certifies that he/she has personally conducted a gross and/or microscopic examination of the described specimens and rendered or confirmed the above diagnosis. Specimen(s) Received: Right lower lip Clinical History: H/O squamous cell skin cancer Gross Description: ? Received in formalin labelled with proper patient identification (initials C, D) and right lower lip is a shave biopsy of bo-pink pearly skin (0.3 x 0.3 x 0.1 cm). The specimen is submitted entirely in 1. 05/21/2016 11:59 AM End of Report [facility] 05/20/2016 9:28 EDT 05/21/2016 9:28 EDT Britt M Juan STEELE PATHOLOGY ORDER BAO [facility] [address] [place] [address] documented in this encounter Visit Diagnoses Not on filedocumented in this encounter Care Teams Mechanical Project Manager Relationship Specialty Start Date End Date Phylicia Zabala MD [address] [place] [phone] PCP - General 09/11/09 05/20/16 Unknown, Provider, [address] [place] [address] PCP - General 05/21/16 05/26/16 Phylicia Zabala MD [address] [place] [phone] 05/21/16 documented as of this encounter
--- OUTSIDE RECORDS SUMMARY | 2024-07-09 00:36 | XMS_ITS | Encounter Summary ---
Author Organization [facility] Address [address] [place] [address] Care Team Providers Care Back Grinder Name Role Phone Phylicia Zabala MD Primary Care Provider [phone] Encounter Details Date Type Department Care Team (Late st Contact Info) Description 02/08/2014 Results Only [facility] - [facility] [place] [address] [place] [phone] Phylicia Zabala MD [address] [place] [address] [address] [place] [phone] Social History Tobacco Use Types Packs/Day Years [...] Diagnosis Comments PAP TEST- RESULT ONLY Routine 02/08/2014 0:00 EDT documented in this encounter Results * PAP TEST- RESULT ONLY (02/08/2014 0:00 EDT) Pathology Report: CYTOPATHOLOGY REPORT Reports generated via electronic interface contain original data; however they are lacking the format of the original report. Caution should be taken when reading/interpreti ng unformatted reports. Name: ? CASA, D ALEENA ? Accession #: ? [id number] ? : ? 1960 (Age: 53) ??F ?Collect Date: ? 02/08/2014 ? Location: ? [facility] ? Receive Date: ? 02/09/2014 ? Provider: PHYLICIA ZABALA MD Copy to: ? Final Report SPECIMEN ADEQUACY ? Satisfactory for Evaluation - transformation zone component present GENERAL CATEGORIZATION ? Negative for Intraepithelial Lesion or Malignancy ?? Last Menstrual Period: 08/2013 Other: Additional clinical information: Benign Specimen/Source: ??Pap Test, Cervix/Endocervix, ThinPrep Imaging System with manual evaluation Document reviewed and electronically signed by: ? Tim Mata, [place](ASCP) ? Report ??Date: 02/15/2014 13:34 HPV with Pap Test ? Date Ordered: ? 02/15/2014 ? Status: ?? Signed Out ?Date Complete: ? 02/17/2014 ? By: ??System Interface ? Date Reported: ? 02/17/2014 ? Interpretation RESULT: Negative for HPV. No E6 or E7 mRNA is detected from HPV types 16,18,31,33,35, 39,45,51,52,56,58, 59,66, and 68 by woodworking belt sander mediated amplification. Comments Document reviewed and electronically signed by: ? System Interface ? Report date: 02/17/2014 By the signature above, the attending physician certifies that he/she has personally conducted a gross and/or microscopic examination of the described specimens and rendered or confirmed the above diagnosis. End of Report [facility] 02/08/2014 02/09/2014 Phylicia Zabala MD PATHOLOGY ORDERABLE S [facility] [address] [place] [address] documented in this encounter Visit Diagnoses Not on filedocumented in this encounter Care Teams Back Grinder Relationship Specialty Start Date End Date Phylicia Zabala MD [address] [facility] [address] [place] [address] PCP - General 09/11/09 05/20/16 documented as of this encounter
--- OUTSIDE RECORDS SUMMARY | 2024-07-09 00:36 | XMS_ITS | Encounter Summary ---
Author Organization [facility] Address [facility] [place] [address] Care Team Providers Care B2B Sales Executive Name Role Phone Phylicia Zabala MD Primary Care Provider [phone] Reason for Visit * Reason Onset Date Comments Eye Problem 06/26/2021 Concerns for vis ion changes Encounter Details Date Type Department Care Team (Late st Contact Info) Description 06/26/2021 Telephone [place] [address] Gera Dominguez MD [facility] [place] [address] Eye Problem (Concerns for vision changes) Social History Tobacco Use Types Packs/Day Years Used Date Smoking Tobacco: Never Smokeless Tobacco: Never Sex and Gender Information Value Date Recorded Sex Assigned at Not on file Gender Identity Not on file Sexual Orientation Not on file documented as of this encounter Miscellaneous Notes * Telephone Encounter - Lynne Lazcano COT - 06/27/2021 10:29 AM EDT Patient seen yesterday by OD in . and needs retina consult with history of central serous retinopathy. They are recommending 2-3 weeks per patient. Advised patient of referral process and case bycase review by retina provider. Need referral prior to scheduling and outcome unknown at this time. * Telephone Encounter - Lynne Lazcano COT - 06/26/2021 4:06 PM EDT Patient states via VM; for about 1 week she has had vision changes in good eye, difficulty reading with central vision blur. 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 documented in this encounter Plan of Treatment Not on file documented as of this encounter Visit Diagnoses Not on filedocumented in this encounter Care Teams B2B Sales Executive Relationship Specialty Start Date End Date Phylicia Zabala MD [address] [place] [address] PCP - General 10/23/10 documented as of this encounter
--- OUTSIDE RECORDS SUMMARY | 2024-07-09 00:36 | XMS_ITS | Encounter Summary ---
Author Organization [facility] Address [facility] [place] [address] Care Team Providers Care Silver Lap Machine Tender Name Role Phone Phylicia Zabala MD Primary Care Provider [phone] Reason for Visit * Reason Comments Follow-up Encounter Details Date Type Department Care Team (Late st Contact Info) Description 07/01/2018 9:30 AM EDT Office Visit Dermatology at [facility] [address] [place] [address] Fermin Dominguez MD [facility] [place] [address] Tinea pedis of right foot; AK (actinic keratosis); Lentigines; Seborrheic keratosis Social History Tobacco Use Types Packs/Day Years Used Date Smoking Tobacco: Never Smokeless Tobacco: Never Sex and Gender Information Value Date Recorded Sex Assigned at Not on file Gender Identity Not on file Sexual Orientation Not on file documented as of this encounter Patient Instructions * Patient Instructions* Heidi Parisi - 07/01/2018 9:30 AM EDT Plan for Nasreen: - Continue Rx: Efudex 5% cream mixed with Dovonex 0.005% apply pea sized amount to the forehead, upper lip border, upper lip, and right upper cutaneous lip twice daily for 3-4 days - Start Rx: Ketoconazole 2% cream apply to the feet twice daily until clear documented in this encounter Progress Notes * Fermin Dominguez Harpreet - 07/01/2018 9:30 AM EDT Images from the original note were not included. DERMATOLOGY - ESTABLISHED PATIENT FOLLOW-UP Date of service: 07/01/2018 Adelfo Chiu : 1960, 58 y.o. Chief Complaint: Efudex f/u HPI: Adelfo Chiu is a 58 y.o. female last seen by myself on 03/19/2018. Ms. Chiu returns today for Efudex f/u on the right upper cutaneous lip treated with Efudex mixed with Dovonex BID for 4 days in March. She did not have a big reaction, on the 4th day it became mildlyinflamed. Area feels rough now and was red yesterday after being in the sun. However, patient notessignificant improvement with the Efudex. She also complains of a scaly lesion on the forehead and a lesion on the left cheek. No tenderness or pruritus. Never treated or biopsied. Relevant Skin History: H/o SCC with KA features,??right forearm s/p ED&C 03/2007 ?? 02/17/17 Skin, left brow, shave ?? biopsy: ?Wart, irritated. ? Major past medical history from patient's perspective Factor five Leiden mutation ?? Family History: Melanoma: No ?? Social History: - Self Employed, [email or web address] Medications: Current Outpatient Prescriptions Medication Sig Dispense Refill ??? fluorouracil (EFUDEX) 5 % Cream Apply [...] and in no noticeable distress. - Skin: focused exam of the face and bilateral lower extremities Diagnosis/Skin findings/Assessment/Plan: 1. Actinic Keratosis-0.2-0.3cm scaly irregular pink papules on the right forehead, right upper cutaneous lip Discussed nature, discussed treatment options such as cryotherapy, efudex and dovonex. - Denies a history of cold sores. - Combined decision to treat with Efudex mixed with Dovonex twice daily for 4 days. - Advised pt to send [employer] message in 1 week with response to treatment. If lesion persists advisedto call prior to 3 month f/u to consider biopsy at that time - Continue Rx: Efudex 5% cream mixed with Dovonex 0.005% pea sized amount Apply to the affected areas twice daily for 4 days. 2. Tinea Pedis - pink scaly patch with a rim of pustules on the right lower foot consistent with tinea pedis -advised pt that this is secondary to a dermatophyte infection such as: Trichophyton rubrum, Trichophyton mentagrophytes, and Epidermophyton floccosum most commonly -avoid wearing occlusive foot wear if possible and wear cotton socks and change regularly if havinghigh perspiration - Lab: [facility] Positive for fungal elements - Start Rx: Ketoconazole 2% cream BID apply to the feet until clear 3. Lentigo - Hypopigmented lesion on the left cheek - Reassured the patient that this is benign - No treatment required 4. Seborrheic keratosis. - 5 mm papule on the left medial thigh -benign nature of lesions discussed -patient reassured. RTC: 6 months for full skin exam or sooner if needed The following photos were obtained with patient consent: Note initiated by TIERRA SANABRIA LPN. I, Heidi Coronachelsey, have performed the documentation for this encounter in the presence of and acting as a scribe for Fermin Dominguez MD. I performed the above scribed service and agree with the accuracy of the documentation in this encounter. Reviewed and signed by: Fermin Dominguez MD Resident in Dermatology [facility] Patient seen and evaluated with staff railroad wheels and axles inspector: Rama Brown MD Section of Dermatology [facility] * Rama Brown MD - 07/01/2018 9:30 AM EDT I directly supervised Dr. Dominguez during this office visit. Dr. Dominguez presented the history and physical exam to me. I then saw and examined this patient with Dr. Dominguez. We reviewed the history and pertinent details and I confirmed the physical findings. I agree with the details of the history and physical exam as documented in Dr. Dominguez' note. RAMA BROWN MD Staff Physician documented in this encounter Plan of Treatment Not on file documented as of this encounter Visit Diagnoses Diagnosis Tinea pedis of right foot Dermatophytosis of foot AK (actinic keratosis) Actinic keratosis Lentigines Other dyschromia Seborrheic keratosis Other seborrheic keratosis documented in this encounter Care Teams Silver Lap Machine Tender Relationship Specialty Start Date End Date Phylicia Zabala MD [address] [place] [address] PCP - General 10/23/10 documented as of this encounter
--- OUTSIDE RECORDS SUMMARY | 2024-07-09 00:36 | XMS_ITS | Encounter Summary ---
Author Organization [facility] Address [address] [place] [id number] Care Team Providers Care Straw Baler Name Role Phone Phylicia Zabala MD Primary Care Provider [phone] Encounter Details Date Type Department Care Team (Late st Contact Info) Description 12/17/2010 Results Only [facility] Services - [facility] ([facility]) [address] [place], [place] [id number] Omkar Rowe MD [address] [place], [place] [address] Social History Tobacco Use Types Packs/Day Years Used Date Smoking Tobacco: Never Assessed Sex and Gender Information Value Date Recorded Sex Assigned at Not on file Gender Identity Not on file Sexual Orientation Not on file documented as of this encounter Plan of Treatment Not on file documented as of this encounter Procedures Procedure Name Priority Date/Time Associated Diagnosis Comments SURGICAL PATHOLOGY Routine 12/17/2010 0:00 EST documented in this encounter Results * SURGICAL PATHOLOGY (12/17/2010 0:00 EST) Pathology Report: SURGICAL PATHOLOGY REPORT ? Reports generated via electronic interface contain original data; ? however they are lacking the format of the original report. ? Caution should be taken when reading/interpreti ng unformatted reports. ? Name: ? CASA, D NASREEN ? Accession #: ? [id number] ? : ? 1960 (Age: 50) ??F ? Collect Date: ? 12/17/2010 ? Location: ? [facility] ? Receive Date: ? 12/17/2010 ? Provider: OMKAR ROWE MD ? Copy to: PHYLICIA M DOBBLIDYAIN MD ? Final Pathologic Diagnosis: ? Colon, cecum, polyp, biopsy: ? - Fragments of tubular adenoma. ? Document reviewed and electronically signed by: ? FIORELLA L GORDON MD ? Report ??Date: 12/19/2010 17:24 ? By the signature above, the attending physician certifies that he/she has ? personally conducted a gross and/or microscopic examination of the described ? specimens and rendered or confirmed the above diagnosis. ? Specimen(s) Received: ? Cecal polyp ? Clinical History: ? Screening colonoscopy ? Gross Description: ? Received in Mary's fixative labelled [place], D Nasreen and #1 ??cecal ? polyp is a 0.4 x 0.2 x 0.2 cm polypoid biopsy. The specimen is submitted intact in one cassette. ??(Jerald Chow)/mms ? End of Report ? [facility] 12/17/2010 12/17/2010 18: 21 EST Omkar Rowe MD PATHOLOGY ORDERABLES Performing Organization Address City/State/[facility] Co de Phone Number [facility] [address] [place] [address] documented in this encounter Visit Diagnoses Not on filedocumented in this encounter Care Teams Straw Baler Relationship Specialty Start Date End Date Phylicia Zabala MD [address] [place] [address] PCP - General 09/11/09 05/20/16 documented as of this encounter
--- OUTSIDE RECORDS SUMMARY | 2024-07-09 00:36 | XMS_ITS | Encounter Summary ---
Author Organization [facility] Address [facility] [place] [address] Care Team Providers Care Music Ministries Director Name Role Phone Phylicia Zabala MD Primary Care Provider [phone] Reason for Visit * Reason Comments Follow-up Encounter Details Date Type Department Care Team (Late st Contact Info) Description 12/16/2018 9:00 AM EST Office Visit Dermatology at [facility] [address] [place] [address] Fermin Dominguez MD [facility] [address] [place] [address] Actinic keratoses; Sebaceous hyperplasia Social History Tobacco Use Types Packs/Day Years Used Date Smoking Tobacco: Never Smokeless Tobacco: Never Sex and Gender Information Value Date Recorded Sex Assigned at Not on file Gender Identity Not on file Sexual Orientation Not on file documented as of this encounter Progress Notes * Fermin Dominguez - 12/16/2018 9:00 AM EST Images from the original note were not included. DERMATOLOGY - ESTABLISHED PATIENT FOLLOW-UP Date of service: 12/16/2018 Adelfo Chiu : 1960, 58 y.o. Chief Complaint: Chief Complaint Patient presents with ??? Follow-up HPI: Adelfo Chiu is a 58 y.o. female last seen by myself on 07/01/2018. Ms. Chiu returns today for a follow up of AK on upper cutaneous lip after Efudex and Dovonex treatment. Patient did not get a strong response to the Efudex this time around. Patient feels that this spot is now more noticeable to her. Relevant Skin History: H/o SCC with KA features,??right forearm s/p ED&C 03/2007 ?? 02/17/17 Skin, left brow, shave ?biopsy: ?Wart, irritated. ? Major past medical history from patient's perspective Factor five Leiden mutation ?? Family History: Melanoma: No ?? Social History: - Self Employed, [employer] Medications: Current Outpatient Medications Medication Sig Dispense [...] distress. - Skin: Skin examination of the face was normal with the exception of the findings listed below. Diagnosis/Skin findings/Assessment/Plan: # Actinic Keratosis -0.2-0.3cm scaly irregular pink papule(s) on the right upper cutaneous lip x1, left cheek x1. - Discussed the natural history and etiology of actinic keratoses including the Discussed premalignent potential of these lesions. -Discussed treatment options. Procedure Note: Procedure: Destruction of lesion(s) with cryotherapy. Number: 2 Location: as above Discussed procedure and expectations including risks (including risk of hypopigmentation) and benefits. Verbal consent obtained. Frozen with LN2, 15-30 second thaw time, TWICE. There were no complications; the patient tolerated the procedure well. Post-procedure expectations and wound care were reviewed. # Sebaceous hyperplasia-yellow papules with crown of vessels and central dell on dermoscopy -advised lesions are benign increase in size of glands and that if bothersome can be treated cosmetically # Folliculitis, resolving on the upper chest RTC: March 2019 for full skin exam Note initiated by Libra Hill LPN. I, Libra Hill LPN, have performed the documentation for this encounter in the presence of and acting as a scribe for Fermin Dominguez MD. I performed the services which were documented by the scribe, and I agree with the accuracy of the documentation in this encounter. Libra Hill LPN Reviewed and signed by: Fermin Dominguez MD Resident in Dermatology [facility] Patient seen and evaluated with staff apprentice painter brush: Rama Brown MD Section of Dermatology [facility] * Rama Brown MD - 12/16/2018 9:00 AM EST I directly supervised Dr. Dominguez during this [...] as of this encounter Visit Diagnoses Diagnosis Actinic keratoses Actinic keratosis Sebaceous hyperplasia Other specified disease of sebaceous glands documented in this encounter Care Teams Music Ministries Director Relationship Specialty Start Date End Date Phylicia Zabala MD [address] [place] [address] PCP - General 10/23/10 documented as of this encounter
--- OUTSIDE RECORDS SUMMARY | 2024-07-09 00:36 | XMS_ITS | Encounter Summary ---
Author Organization [facility] Address [address] [place] [address] Care Team Providers Care Nicker Name Role Phone Phylicia Zabala MD Primary Care Provider Phylicia Zabala MD Unavailable [phone] Encounter Details Date Type Department Care Team (Late st Contact Info) Description 01/19/2020 Lab Requisition [facility] Pathology & Laboratory Medicine - [address] [address] Phylicia Zabala MD [address] [place] [address] [address] [place] [address] Encounter for other general examination Social History Tobacco Use Types Packs/Day Years Used Date Smoking Tobacco: Never Assessed Sex and Gender Information Value Date Recorded Sex Assigned at Not on file Gender Identity Not on file Sexual Orientation Not on file documented as of this encounter Plan of Treatment Not on file documented as of this encounter Procedures Procedure Name Priority Date/Time Associated Diagnosis Comments PAP TEST Today 01/18/2020 16:30 EST Encounter for other general examination HPV DNA DETECTION WITH GENOTYPING, PCR Today 01/18/2020 16:30 EST Encounter for other general examination documented in this encounter Results * HUMAN PAPILLOMAVIRUS (HPV) DETECTION-HIGH RISK TYPES (01/18/2020 16:30 EST) HPV other High Risk types, PCR Negative Negative 02/01/2020 15:18 EST [facility] Comment:No E6 or E7 mRNA is detected from HPV types 16,18,31,33,35,39,45,51,52,56,58,59,66, and 68 by development analyst mediated amplification. Papanicolaou smear specimen (specimen) CERVIX UTERI STRUCTURE / Unknown 01/18/2020 16:30 EST 01/31/2020 10:29 EST Phylicia Zabala MD MICROBIOLOGY - GENE RAL ORDERABLES [facility] [address] [place] [address] * PAP TEST (01/18/2020 16:30 EST) Specimens A. Cervix and/or Endocervix, ThinPrep Imaging System with Manual Evaluation 02/01/2020 15:18 [facility] Specimen Adequacy Satisfactory for Evaluation - transformation zone component present 02/01/2020 15:18 [facility] General Categorization Epithelial Cell Abnormality 02/01/2020 15:18 [facility] Descriptive Diagnosis Squamous Cell Abnormality - Atypical squamous cells, undetermined significance (ASC-US). 02/01/2020 15:18 [facility] Attestation By the signature below, the attending physician certifies that they have personally conducted a gross and/or microscopic examination of the described specimens and rendered or confirmed the above diagnosis. 02/01/2020 15:18 [facility] at 1518 Educational Comments [facility] recommends following ASCCP's 2012 Updated Consensus Guidelines for the Management of Abnormal Cervical Cancer Screening Tests and Cancer Precursors (JLGTD, 2013; 17(5):S1-S27). Consensus guidelines are available online at www.asccp.org. 02/01/2020 15:18 [facility] Clinical History NONE 02/01/20 15:18 [facility] HPV The result for the Human Papillomavirus (HPV) Detection-High Risk Types is Negative. No E6 or E7 mRNA is detected from HPV types 16,18,31,33,35,3 9,45,51,52,56,58 ,59,66, and 68 by development analyst mediated amplification.Te sting was performed on specimen [id number] and was resulted on 02/01/2020 1439 EST by RENAE, LAB INSTRUMENT RESULTS IN 02/01/2020 15:18 EST [facility] Scanned Images 02/01/2020 15:18 EST [facility] Papanicolaou smear specimen (specimen) CERVIX UTERI STRUCTURE / Unknown 01/18/2020 16:30 EST 01/19/2020 15:24 EST Phylicia Zabala MD PATHOLOGY ORDERABLE S [facility] [address] [place] [address] documented in this encounter Visit Diagnoses Diagnosis Encounter for other general examination documented in this encounter Care Teams Nicker Relationship Specialty Start Date End Date Phylicia Zabala MD PCP - General 05/27/16 Phylicia Zabala MD [address] [place] [address] [address] [place] [address] 05/21/16 documented as of this encounter
--- OUTSIDE RECORDS SUMMARY | 2024-07-09 00:36 | XMS_ITS | Encounter Summary ---
Author Organization [facility] [place] [address] Care Team Providers Care Audio Visual Secretary Name Role Phone Phylicia Zabala MD Primary Care Provider Reason for Visit * Consultation (Routine) - Closed Specialty Diagnoses / Procedures Referred By Contac t Referred To Contact Rheumatology Diagnoses Positive ELISEO (antinuclear antibody) Phylicia Zabala MD [address] [place] [address] [facility] [address] [place] [address] Referral ID Status Reason Start Date Expiration Date V isits Requested Visits Authorized [id number] Closed Consult, Test & Treat PCP Updated and/or Approved 09/30/2022 09/30/2023 6 6 Encounter Details Date Type Department Care Team (Late st Contact Info) Description 10/02/2022 8:00 AM EDT [place] [address] Cassi Kahn MD [facility] [place] [address] Darrion Ross MD [facility] [address] Sicca, unspecified type Social History Tobacco Use Types Packs/Day Years Used Date Smoking Tobacco: Never Smokeless Tobacco: Never Sex and Gender Information Value Date Recorded Sex Assigned at Not on file Gender Identity Not on file Sexual Orientation Not on file documented as of this encounter Last Filed Vital Signs Vital Sign Reading [...] Mass Index 24.13 10/02/2022 8:04 AM EDT documented in this encounter Patient Instructions * Attachments The following attachments cannot be sent through Care Everywhere. * Sjogren's Syndrome (Bahamian) documented in this encounter Progress Notes * Darrion Ross MD - 10/02/2022 8:00 AM EDT Rheumatology Outpatient Consultation Note Reason for Consult: The patient is seen at the request of Phylicia Zabala for evaluation and treatment of ELISEO and RF positive History of Present Illness: Adelfo Chiu is a 62 y.o. female with past medical history of factor V Leiden mutation (on baby aspirin), dermatological disorders - seborrheic keratosis, actinic cheilitis, solar lentigines, SCC of skin, depression, central serous retinopathy who presents today for evaluation of ELISEO and RF positive. She states she periodically has dry eyes, better during hall, uses refresh eye drops and has been going on for several years. She follows with an eye doctor who saw dryness on the surface of her eyes and prescribed lubricant eye drops. Reports having scratches in the eyes which resolved with eye drops. Also reports dry mouth since several years but worse over the past year. It is worseat night. Associated with soreness on eating salty foods. Reports taking methylphenidate and has noted worsening of dryness when she takes it. Goes to the dentist twice a year, but does not report frequent caries. Endorses intermittent right groin and lower back pain. Reports cough and chest tightness which is worse at night, started after she started taking aspirin. She was started on omeprazole albuterol prn with improvement. Reports hot flashes since menopause. Past history of one miscarriage, no blood clots ROS: General (-)fevers, (-)chills, (+)night sweats, (-)wt loss/gain. HEENT (-)inflammatory eye disease, (-)vision loss, (-)epistaxis, (-)bleeding gums, (-)oral ulcers, (+)dry eyes, (+)dry mouth, (-)dysphagia, (+)GERD, (-)photo sensitivity CVS (-)chest pain, (-)palpitations Pulm (-)shortness of breath, (-)ZHAO, (+)wheezes, (+)cough, (-)pleuritic pain GI (-)N/V, (-)abdominal pain, (-)hematochezia (-)hematuria, (-)dysuria MS (-)muscle weakness, (-)paralysis, (-)joint pain Endo (-)thyroid disorders, (-)diabetes Neuro (-)focal weakness, (-)paresthesias, (-)gait instability. Skin (-)Raynaud's, (-)rashes - no psoriasis Psych (+) mood disorder. 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 Cardiovascular: RR, (-)murmurs, rubs, or gallops. Lungs: Clear to auscultation bilaterally. (-)R/R/W Back: Nontender over the spine and costovertebral angles bilaterally. Neuro: Alert and oriented x3. Strength 5/5 throughout Extremities: Shoulders: FROM, non-tender to palpation Elbows:FROM, (-)pain, (-)nodules Wrists: FROM, no swelling, non-tender Hands: No synovitis, no MCP compression tenderness, full claw and fist. No nail pitting Hips: FROM Knees: (-)effusions, non-tender ROM Ankles: FROM, non-tender, no swelling Feet: no MTP compression tenderness, no toe splaying Laboratory Data: 06/27/2022 WBC 5.12 Hgb 12.6 Plts 219 Cr 1.2, eGFR 45 LFTs wnl ELISEO 1:80 speckled SSA < 1.2, SSB < 1.6 RF 22.3 SPEP nl Studies: DEXA 05/23/2022 T score L-spine 1.5 Left hip -0.2 Femoral neck -1.1 Distal radius -0.1 Impression: Adelfo Nasreen Chiu is a 62 y.o. female with past medical history of asthma, dermatological disorders - seborrheic keratosis, actinic cheilitis, solar lentigines, SCC of skin, ?mood disorder, ?retinal disease who presents today for evaluation of ELISEO and RF positive. Ms Chiu has sicca symptoms (dry eyes and dry mouth) and is on at least 2 medications which cause xerostomia - fluoxetine which she takes everyday and methylphenidate as needed. She also has moderate amount of coffee intake and does not drink enough fluids during the day. Examination shows mild tongue dryness, rest of the exam is normal. Labs show ELISEO 1:80 and RF 22.3, SSA and SSB negative. The likely cause of her sicca symptoms is partly related to age related atrophy of secreting glandsand partly her medications and liefstyle. She does not meet criteria for sjogren's. No serological or histopath evidence. ELISEO is 1:80 which is very low +. It can be positive in a range of connective tissue disease like SLE, Drug induced lupus, Scleroderma, RA, Sjogren's, MCTD, Raynaud's, polymyositis/dermatomyositis, JOSE; other autoimmune diseases like Amber's, Graves, PBC; Infectious diseases like EBV, HIV, Parvovirus, syphilis to name a few. ELISEO could also be positive years prior to development of an autoimmune disease or could be found in 5% of normal population. RF is also low + at 22.3 which is also non specific and have been found in up to 4 percent of young, healthy individuals. The reported incidence may be higher in older subjects without rheumatic disease, ranging from 3 to 25 percent. It is likely that she falls into the latter categories for both. I would recommend some lifestyle and medication changes as follows. Recommend changing fluoxetine and methylphenidate to different medications as deemed fit by PCP as they are commonly associated to have xerostomia. Recommend some basic measures like maintenance of good hydration by taking regular sips of water, drinking sugar-free liquids, and avoidance of oral irritants (for example coffee, alcohol, and nicotine). Avoidance of medications as mentioned above and also those with anticholinergicside effects. Maintenance of open nasal passages to avoid mouth breathing and avoidance of low humidity environments. Also recommend using salivary stimulants like sugar-free candies, lozenges and gums. For her dry eyes I recommend continued usage of lubricant eyedrops. Lastly, she might have what looks like aspirin exacerbated respiratory disease. Would recommend changing to a different medication or stopping it. Will defer this to the PCP. Recommendations: - recommend some lifestyle and medication changes - Recommend changing fluoxetine and methylphenidate to different medications as deemed fit by PCP - Recommend some basic measures like maintenance of good hydration by taking regular sips of water,drinking sugar-free liquids, and avoidance of oral irritants (for example coffee, alcohol, and nicotine). - Avoidance of medications as mentioned above and also those with anticholinergic side effects. - Maintenance of open nasal passages to avoid mouth breathing and avoidance of low humidity environments. - recommend using salivary stimulants like sugar-free candies, lozenges and gums. - recommend continued usage of lubricant eyedrops. - recommend changing aspirin to a different medication or stopping it. Will defer this to the PCP Follow up in 1 year The patient was seen and discussed with Dr Femi Ross MD Rheumatology Fellow Pager: [phone] CC: Phylicia Zabala * Cassi Kahn MD - 10/02/2022 8:00 AM EDT I saw this patient with Dr. Ross and I agree with the details of the visit outlined in his note, including the assessment and plan that was devloped with me at the time of the visit. documented in this encounter Plan of Treatment Scheduled Referrals Name Type Priority Associated Diagnoses Order Schedule Referral to Rheumatology Outpatient Referral Routine Positive ELISEO (antinuclear antibody) Ordered: 09/30/2022 documented as of this encounter Visit Diagnoses Diagnosis Sicca, unspecified type documented in this encounter Care Teams Audio Visual Secretary Relationship Specialty Start Date End Date Phylicia Zabala MD [address] [facility] [address] [place] [address] PCP - General 10/23/10 documented as of this encounter
--- OUTSIDE RECORDS SUMMARY | 2024-07-09 00:36 | XMS_ITS | Clinical Summary ---
Author Organization [facility] Address [address] [place] [address] Care Team Providers Care Bowling Ball Finisher Name Role Phone Phylicia Zabala MD Primary Care Provider [phone] Phylicia Zabala MD Unavailable [phone] Social History Tobacco Use Types Packs/Day Years Used Date Smoking Tobacco: Never Assessed Sex and Gender Information Value Date Recorded Sex Assigned at Not on file Gender Identity Not on file Sexual Orientation Not on file Plan of Treatment Health Maintenance Due Date Last Done Comments Hepatitis C Screen 1960 RSV Immunization ( o r 60+ Years) (1 - 1-dose 60+ series) 2020 COVID-19 Vaccine (2022- season) 2023 Care Teams Bowling Ball Finisher Relationship Specialty Start Date End Date Phylicia Zabala MD PCP - General 05/27/16 Phylicia Zabala MD [address] [place] [address] [address] [place] [address] 05/21/16
--- OUTSIDE RECORDS SUMMARY | 2024-07-09 00:36 | XMS_ITS | Encounter Summary ---
Author Organization [facility] Address [facility] [place] [address] Care Team Providers Care House Wirer Helper Name Role Phone Phylicia Zabala MD Primary Care Provider [phone] Reason for Visit * Reason Comments Skin Lesion Encounter Details Date Type Department Care Team (Late st Contact Info) Description 02/17/2017 8:00 AM EDT Office Visit Dermatology at [facility] [address] [place] [address] Danielle Morris MD [facility] [place] [address] Seborrheic keratosis; Angiolipoma; Neoplasm of uncertain behavior of skin; Skin cancer screening; History of SCC (squamous cell carcinoma) of skin Social History Tobacco Use Types Packs/Day Years Used Date Smoking Tobacco: Never Assessed Sex and Gender Information Value Date Recorded Sex Assigned at Not on file Gender Identity Not on file Sexual Orientation Not on file documented as of this encounter Patient Instructions * Patient Instructions* Virginia Abernathy - 02/17/2017 8:00 AM EDT Treatment and Wound Care Instructions Your treatment today: You have had a shave biopsy of your skin, which is a removal of tissue for examination under a microscope. This wound will heal without stitches. Allow 3-6 weeks for the wound to heal. If bleeding occurs, hold firm pressure against the wound for 15 minutes. If bleeding continues, calls the office or go to your local emergency room. Please allow 1-2 weeks for the biopsy results to return. Your physician or nurse will contact you with the results by phone or letter; follow-up will be discussed at that time. Wound Care Instructions: You will need to keep the dressing placed over the wound dry and intact for 24 hours. Afterwards, perform the following wound care daily: ?? Wash your hands before changing the dressing. ?? Remove the bandage and clean the area with mild soap and water, then gently pat the area dry. ?? Apply a small amount of Vaseline to the area, then cover the wound with a band-aid. Change your dressing daily until the wound is fully healed. ?? A small amount of yellow drainage is part of normal healing. The area might appear as a small depression with redness around the edge of the wound. This is normal. ?? Please contact the office you you notice any of the following signs of infection: increased tenderness, pain, drainage, or redness that becomes hot or hard around the wound. If you have further questions or concerns, please call the office at [phone]. If it is after 5PM, or a holiday or weekend, please call [phone] and ask for the Collections Attorney on-call. documented in this encounter Progress Notes * Danielle Morris MD - 02/17/2017 8:00 AM EDT Images from the original note were not included. DERMATOLOGY - NEW PATIENT NOTE Date of service: 02/17/2017 Adelfo Chiu : 1960 Dermatology Resident Note: Danielle Morris MD, PGY4 Chief Complaint Patient presents with ??? Skin Lesion HPI: Ms. Adelfo Chiu is a 56 y.o. female. This is a new patient to me, seen in consultation at the request of No ref. provider found specifically for the evaluation and management of the above problem. Here today for a lesion on the left eyebrow. The lesion has been present for 3 months. It bleeds on occasion. Concerned due to h/o SCC on right forearm which was similar. She has a similar lesion on her scalp. Also thinks she has a lipoma on the right thigh that has been present for several years. She is unaware of the lipoma changing in size. Curious/concerned about why it seems painful at times. Reports a white spot on the left lower leg that she'd like to have checked. 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 Major past medical history from patient's perspective (updated today) Factor five Leiden mutation Major past surgical history from patient's perspective (updated today) Tonsillectomy Eye surgery Pre-Procedure Checklist: Pacemaker/defibrillator: No Allergy to lidocaine or epinephrine: No Do we have your permission to leave a voicemail with biopsy results and other detailed health information? Yes Current Outpatient Prescriptions Medication Sig Dispense Refill ??? aspirin 81 mg Tablet, Delayed Release [...] No current facility-administered medications for this visit. Allergies Allergen Reactions ??? Doxycycline Rash ??? Sulfa (Sulfonamide Antibiotics) CIS - Edema Family History: Melanoma or non-melanoma skin cancer: none Eczema, asthma or seasonal allergies: none Psoriasis: none Social/Occupational History: Occupation: Self employed, owns a [employer] business Smoking: no Review of Systems: - General: Feels well. NO recent cold, fever or flu. - Skin: As per HPI; no other skin concerns. Examination: - Constitutional: Patient was alert, well-appearing and in no noticeable distress. - Skin: Skin examination of the scalp, face, chest, abdomen, back, buttocks, bilateral upper and lower extremities including palms and soles was normal with the exception of the findings listed below. External genitalia were not examined. Notable findings/Assessment/Plan: 1. SCC vs AK - Left brow: 0.2 x 0.2cm pink scaly slightly hyperkeratotic papule. - Dicussed cryotherapy versus biopsy and my preference for the latter; pt agreses. Procedure: Skin biopsy by shave technique Location: left brow Discussed indications for procedure and expectations including risks and benefits. Verbal consent obtained. Skin prep with alcohol. Local anesthesia with 1% xylocaine, 1/100,000 epinephrine. A sampleof the lesion was removed by shave technique to the level of the dermis and submitted to Pathology.Hemostasis obtained (AlCl and/or electrocautery). There were no complications; the pt. tolerated the procedure well. The wound was dressed. Post-procedure expectations, wound care and activity restrictions were reviewed. Follow-up based on pathology results 2. Seborrheic keratosis - left lower leg: subtle waxy white thin papule. - Benign. No intervention needed. Patient reassured. 3. Clinically consistent with angiolipoma - Right posterior thigh: 1 x 0.8cm soft flesh colored dermal nodule. - Patient reassured of benign nature. - Advised pt to seek reevaluation for noticeable growth/change which is not expected for an angiolipoma. 4. Skin cancer screening / history of SCC - No lesions suspicious for skin cancer on today's full skin exam, except as noted above. The following photos were obtained with patient consent: Follow-up: Pending pathology, then once a year. I, Rosemary Trotter REFERRAL RN and Virginia Abernathy, Clinical Scribe - am documenting this encounter acting as the scribe for and in the presence of Dr. Danielle Morris. I performed the above scribed service and agree with the accuracy of the documentation of this encounter. Danielle Morris MD, PGY4 Resident in Dermatology [facility] Staff dev ops engineer: Dimple Godfrey MD Section of Dermatology [facility] * Dimple Godfrey MD - 02/17/2017 8:00 AM EDT I was the supervising physician working with Dermatology resident, Dr. Morris, in the Dermatology Clinic during this patient visit. The level of resident supervision for this patient visit was indirect supervision with direct supervision immediately available (definition: [facility] Policy Statement on Graduate Medical Education, Supervision of Graduate Medical Trainees). I was immediately available to Dr. Morris for questions and discussion regarding this visit. I have reviewed his encounter note details and level of service. DIMPLE GODFREY MD [facility] Staff Physician documented in this encounter Plan of Treatment Not on file documented as of this encounter Procedures Procedure Name Priority Date/Time Associated Diagnosis Comments SPECIMEN TO PATHOLOGY (NON-OR) Routine 02/17/2017 8:47 AM EDT Neoplasm of uncertain behavior of skin SURGICAL PATHOLOGY REPORT Routine 02/17/2017 8:47 AM EDT documented in this encounter Results * Surgical Pathology Report (02/17/2017 8:47 AM EDT) Final Diagnosis [id number] ?Location: [facility] The signing pathologist has (i) examined the relevant preparation(s) for the specimen(s) and (ii) rendered or confirmed the diagnosis(es). . ?Surgical Pathology DIAGNOSIS Skin, left brow, shave ?? biopsy: ?? Wart, irritated. Electronically signed by: ??Joe FELICIANO, PhD, Teresa Verified: ??02/18/2017 ?Dermatopatholog ist CLINICAL INFORMATION Specimen Submitted: A - Skin, Left brow, Shave biopsy, (1) Clinical History: 0.2 x 0.2 cm pink scaly slightly hyperkeratotic papule Clinical Diagnosis: SCC v AK SPECIMEN PROCESSING A - Labeled/Fixative: Left brown, formalin. Quantity/Size: Single, 0.5 x 0.3 x 0.1 cm. Tissue Description: Shave of white skin with a 0.2 cm pink papule. Sections/Processi ng: Inked and bisected. (T1) ??sns 02/18/2017 10:34 AM EDT [facility] SPECIMEN FROM SKIN / Unknown 02/17/2017 8:47 AM EDT 02/17/2017 8:47 AM EDT Danielle Morris MD PATHOLOGY/CYTOLOGY O BHAVYA Performing Organization Address City/[facility]/ZIP [place] [address] * Specimen to Pathology (NON-OR) (02/17/2017 8:47 AM EDT) AP Specimen 02/17/2017 8:47 AM EDT 02/17/2017 12:37 PM EDT Narrative [facility] - 02/17/2017 12:37 PM EDT Specimen requisition ordered. ??Separate Pathology report to follow Resulting Agency Comment Spec In Lab Dimple Godfrey MD PATHOLOGY/CYT[place] [address] documented in this encounter Visit Diagnoses Diagnosis Seborrheic keratosis Other seborrheic keratosis Angiolipoma Lipoma of unspecified site Neoplasm of uncertain behavior of skin Skin cancer screening Screening for malignant neoplasm of the skin History of SCC (squamous cell carcinoma) of skin Personal history of other malignant neoplasm of skin documented in this encounter Care Teams House Wirer Helper Relationship Specialty Start Date End Date Phylicia Zabala MD [address] [facility] [address] [place] [address] PCP - General 10/23/10 documented as of this encounter
--- OUTSIDE RECORDS SUMMARY | 2024-07-09 00:36 | XMS_ITS | Encounter Summary ---
[place] [address] Care Team Providers Care Associate Business Analyst Name Role Phone Phylicia Zabala MD Primary Care Provider Encounter Details Date Type Department Care Team (Late st Contact Info) Description 10/01/2022 [place] [id number] Ayanna Stovall MA Social History Tobacco Use Types Packs/Day Years Used Date Smoking Tobacco: Never Smokeless Tobacco: Never Sex and Gender Information Value Date Recorded Sex Assigned at Not on file Gender Identity Not on file Sexual Orientation Not on file documented as of this encounter Miscellaneous Notes * Telephone Encounter - Ayanna Stovall RMA - 10/01/2022 9:55 AM EDT Called for patient for pre-charting, no answer. JESSICA JIMENES documented in this encounter Plan of Treatment Not on file documented as of this encounter Visit Diagnoses Not on filedocumented in this encounter Care Teams Associate Business Analyst Relationship Specialty Start Date End Date Phylicia Zablaa MD [address] [place] [address] PCP - General 10/23/10 documented as of this encounter
--- OUTSIDE RECORDS SUMMARY | 2024-07-09 00:36 | XMS_ITS | Encounter Summary ---
Author Organization [facility] Address [address] [place] [address] Care Team Providers Care Technology Lab Teacher Name Role Phone Unavailable Primary Care Provider Unavailabl e Encounter Details Date Type Department Care Team (Late st Contact Info) Description 09/05/2009 Orders Only [facility] - [facility] ([facility] [address] [place], [place] [address] Phylicia Zabala MD [facility] [address] [place] [address] Social History Tobacco Use Types Packs/Day Years Used Date Smoking Tobacco: Never Assessed Sex and Gender Information Value Date Recorded Sex Assigned at Not on file Gender Identity Not on file Sexual Orientation Not on file documented as of this encounter Plan of Treatment Not on file documented as of this encounter Procedures Procedure Name Priority Date/Time Associated Diagnosis Comments HPV DETECTION, HIGH RISK TYPES Routine 09/05/2009 14:57 EDT CYTOPATHOLOGY Routine 09/05/2009 0:00 EDT documented in this encounter Results * HUMAN PAPILLOMA VIRUS DNA TEST (09/05/2009 14:57 EDT) Specimen Description Cervix, ThinPrep vial [facility] Result Negative for HPV types 16, 18, 31, 33, 35, 39, 45, 51, 52, 56, 58, 59, and 68. [facility] Report Status Final 09/14/2009 [facility] 09/05/2009 14:5 7 EDT 09/11/2009 14:57 EDT Phylicia Zabala MD MICROBIOLOGY - GENE RAL ORDERABLES [facility] [address] [place] [address] * CYTOPATHOLOGY (09/05/2009 0:00 EDT) Pathology Report: CYTOPATHOLOGY REPORT ? Reports generated via electronic interface contain original data; ? however they are lacking the format of the original report. ? Caution should be taken when reading/interpreti ng unformatted reports. ? Name: ? SHANIKA, ALEENA ? Accession #: ? [id number] ? : ? 1960 (Age: 49) ??F ?Collect Date: ? 09/05/2009 ? Location: ? [facility] ? Receive Date: ? 09/06/2009 ? Provider: ?PHYLICIA M DOBBERTIN MD ? Copy to: ? Specimen/Source: ?Pap Test, Cervix/Endocervix, ThinPrep Imaging System ? with manual evaluation ? Last Menstrual Period: ? 9/15/09 ? Previous Gynecologic Pathology: ? LSIL: W/ Neg HPV 2008 ? Other: ? HPVDX - HPV testing requested regardless of diagnosis on current ThinPrep Pap ?? test. ? SPECIMEN ADEQUACY ? Satisfactory for Evaluation ? - transformation zone component present ? GENERAL CATEGORIZATION ? Epithelial Cell Abnormality ? INTERPRETATION ? Squamous Cell Abnormality - Atypical squamous cells, undetermined ? significance (ASC-US). ? EDUCATIONAL NOTES/RECOMMENDATI ONS ? [facility] recommends following the 2006 Consensus Guidelines for the Management of Women with Abnormal Cervical Cancer Screening Tests (JLGTD, ? 2007;11(4):201-222 ). ??Consensus guidelines are available online at ? www.ASCCP.org. ? Document reviewed and electronically signed by: ? CK RIDDLE MD ? Report Date: ??09/08/2009 15:00 ? End of Report ? [facility] 09/05/2009 09/06/2009 Phylicia Zabala MD PATHOLOGY ORDERABLE S [facility] [address] [place] [address] documented in this encounter Visit Diagnoses Not on filedocumented in this encounter
--- OUTSIDE RECORDS SUMMARY | 2024-07-09 00:36 | XMS_ITS | Encounter Summary ---
Author Organization [facility] Address [address] [place] [address] Care Team Providers Care Science Liaison Name Role Phone Unknown, Provider Primary Care Provider Phylicia Zabala MD Unavailable [phone] Encounter Details Date Type Department Care Team (Latest Contact Info) Description 2016 8:38 EDT - 2016 23:59 EDT Hospital Encounter [address] [address] Unknown, Provider, Discharge Disposition: Home or Self Care Social History Tobacco Use Types Packs/Day Years Used Date Smoking Tobacco: Never Assessed Sex and Gender Information Value Date Recorded Sex Assigned at Not on file Gender Identity Not on file Sexual Orientation Not on file documented as of this encounter Discharge Disposition Disposition Code Departure Means Destination Home or Self Senior Living documented in this encounter Plan of Treatment Not on file documented as of this encounter Visit Diagnoses Not on filedocumented in this encounter Care Teams Science Liaison Relationship Specialty Start Date End Date Unknown, Provider, PCP - General 05/21/16 05/26/16 Phylicia Zabala MD [address] [place] [address] [address] [place] [address] 05/21/16 documented as of this encounter
--- OUTSIDE RECORDS SUMMARY | 2024-07-09 00:36 | XMS_ITS | Encounter Summary ---
Author Organization [facility] Address [address] [place] [address] Care Team Providers Care Electrical Contractor Name Role Phone Phylicia Zabala MD Primary Care Provider [phone] Encounter Details Date Type Department Care Team (Late st Contact Info) Description 03/03/2008 Results Only [facility] [address] [place] [address] Phylicia Zabala MD [facility] [address] [place] [address] Social History Tobacco Use Types [...] Comments HPV DETECTION, HIGH RISK TYPES Routine 03/03/2008 10:46 EDT CYTOPATHOLOGY Routine 03/03/2008 0:00 EDT documented in this encounter Results * HUMAN PAPILLOMA VIRUS DNA TEST (03/03/2008 10:46 EDT) Specimen Description Cervix, ThinPrep vial [facility] Result Negative for HPV types 16, 18, 31, 33, 35, 39, 45, 51, 52, 56, 58, 59, and 68. [facility] Report Status Final [id number] [facility] 03/03/2008 10:4 6 EDT 03/14/2008 10:46 EDT Phylicia Zabala MD MICROBIOLOGY - GENE RAL ORDERABLES [facility] [address] [place] [address] * CYTOPATHOLOGY (03/03/2008 0:00 EDT) Pathology Report: CYTOPATHOLOGY REPORT Reports generated via electronic interface contain original data; however they are lacking the format of the original report. Caution should be taken when reading/interpreti ng unformatted reports. Name: ? SHANIKA, ALEENA ? Accession #: ? [id number] : ? 1960 (Age: 47) ??F ?Collect Date: ? 03/03/2008 Location: ? [facility] ? Receive Date: ? 03/04/2008 Provider: ?PHYLICIA ZABALA MD Copy to: ? Specimen/Source: ?ThinPrep Pap Test, Endocervix, processed on [employer] ThinPrep Imaging System, with manual evaluation Last Menstrual Period: ? 02/22/08 Previous Gynecologic Pathology: ? Yes: negative HPV 03/07 Other: ? HPVDX - HPV testing requested regardless of diagnosis on current ThinPrep Pap test. ? SPECIMEN ADEQUACY ? Satisfactory for Evaluation - transformation zone component present GENERAL CATEGORIZATION ? Epithelial Cell Abnormality INTERPRETATION ? Squamous Cell Abnormality - Low grade squamous intraepithelial lesion (LSIL). EDUCATIONAL NOTES/RECOMMENDATI ONS ? [facility] recommends following the 2006 Consensus Guidelines for the Management of Women with Abnormal Cervical Cancer Screening Tests (JLGTD, 2007;11(4):201-222 ). ??Consensus guidelines are available online at www.ASCCP.org. ? Document reviewed and electronically signed by: ? HE MOFFETT MD [facility] ? Report Date: ??03/11/2008 18:29 End of Report [facility] 03/03/2008 03/04/2008 Phylicia Zabala MD PATHOLOGY ORDERABLE S Performing Organization Address City/State/[facility] Co de Phone Number [facility] [address] [place] [address] documented in this encounter Visit Diagnoses Not on filedocumented in this encounter Care Teams Electrical Contractor Relationship Specialty Start Date End Date Phylicia Zabala MD [address] [place], [place] [address] [address] [place] [address] PCP - General 09/11/09 05/20/16 documented as of this encounter
--- OUTSIDE RECORDS SUMMARY | 2024-07-09 00:36 | XMS_ITS | Encounter Summary ---
Author Organization [facility] Address [facility] [place] [address] Care Team Providers Care Gravity Flow Irrigator Name Role Phone Phylicia Zabala MD Primary Care Provider Encounter Details Date Type Department Care Team (Late st Contact Info) Description 01/26/2019 Telephone Dermatology at [facility] [address] [place] [address] Fermin Dominguez MD [facility] [address] [place] [address] Social History Tobacco Use Types Packs/Day Years Used Date Smoking Tobacco: Never Smokeless Tobacco: Never Sex and Gender Information Value Date Recorded Sex Assigned at Not on file Gender Identity Not on file Sexual Orientation Not on file documented as of this encounter Miscellaneous Notes * Telephone Encounter - Molly Paez - 01/26/2019 3:26 PM EST Called to try and reschedule her appointment that we needed to cancel due to a scheduling change, was unable to leave a message- a letter was sent previously documented in this encounter Plan of Treatment Not on file documented as of this encounter Visit Diagnoses Not on filedocumented in this encounter Care Teams Gravity Flow Irrigator Relationship Specialty Start Date End Date Phylicia Zabala MD [address] [place] [address] [address] [place] [address] PCP - General 10/23/10 documented as of this encounter
--- OUTSIDE RECORDS SUMMARY | 2024-07-09 00:36 | XMS_ITS | Encounter Summary ---
Author Organization [facility] Address [address] [place] [address] Care Team Providers Care Assistant Associate Full Professor Name Role Phone Phylicia Zabala MD Primary Care Provider Phylicia Zabala MD Unavailable [phone] Encounter Details Date Type Department Care Team (Late st Contact Info) Description 05/20/2023 Lab Requisition [facility] Pathology & Laboratory Medicine - [address] [address] Phylicia Zabala MD [address] [place] [address] [address] [place] [address] Encounter for other general examination [...] Date/Time Associated Diagnosis Comments PAP TEST Today 05/19/2023 9:30 EDT Encounter for other general examination HPV DNA DETECTION WITH GENOTYPING, PCR Today 05/19/2023 9:30 EDT Encounter for other general examination documented in this encounter Results * HUMAN PAPILLOMAVIRUS (HPV) DETECTION-HIGH RISK TYPES (05/19/2023 9:30 EDT) HPV other High Risk types, PCR Negative Negative 06/05/2023 15:45 EDT [facility] Comment:No E6 or E7 mRNA is detected from HPV types 16,18,31,33,35,39,45,51,52,56,58,59,66, and 68 by coil inspector mediated amplification. Papanicolaou smear specimen (specimen) CERVIX UTERI STRUCTURE / Unknown 05/19/2023 9:30 EDT 06/04/2023 13:19 EDT Phylicia Zabala MD MICROBIOLOGY - GENE [facility] ORDERABLES [facility] [address] [place] [address] * PAP TEST (05/19/2023 9:30 EDT) Specimens A. Cervix and/or Endocervix , ThinPrep Imaging System with Manual Evaluation 06/05/2023 15:45 [facility] Specimen Adequacy Satisfactory for Evaluation - assessment of transformation zone component not applicable ( e.g. atrophy, vaginal sample, hysterectomy) 06/05/2023 15:45 [facility] General Categorization Negative for intraepithelial lesion or malignancy 06/05/2023 15:45 [facility] Attestation . 06/05/2023 15:45 [facility] at 1545 Clinical History SEE BELOW 06/05/20 23 15:45 [facility] HPV The result for the Human Papillomavirus (HPV) Detection-High Risk Types is Negative. No E6 or E7 mRNA is detected from HPV types 16,18,31,33,35,39 ,45,51,52,56,58,5 9,66, and 68 by coil inspector mediated amplification.Stacy ting was performed on specimen [id number] and was resulted on 06/05/2023 1545 EDT by RENAE, LAB INSTRUMENT RESULTS IN 06/05/2023 15:45 T [facility] Performing Lab [facility] 06/05/2023 15:45 [facility] Scanned Images 06/05/2023 15:45 EDT [facility] Papanicolaou smear specimen (specimen) CERVIX UTERI STRUCTURE / Unknown 05/19/2023 9:30 EDT 05/20/2023 14:03 EDT Phylicia Zabala MD PATHOLOGY ORDERABLE S [facility] [address] [place] [address] documented in this encounter Visit Diagnoses Diagnosis Encounter for other general examination documented in this encounter Care Teams Assistant Associate Full Professor Relationship Specialty Start Date End Date Phylicia Zabala MD PCP - General 05/27/16 Phylicia Zabala MD [address] [facility] [address] [place] [address] 05/21/16 documented as of this encounter
--- OUTSIDE RECORDS SUMMARY | 2024-07-09 00:36 | XMS_ITS | Encounter Summary ---
Author Organization [facility] Address [address] [place] [address] Care Team Providers Care Air Conditioning Service Technician Name Role Phone Phylicia Zabala MD Primary Care Provider [phone] Encounter Details Date Type Department Care Team (Late st Contact Info) Description 03/03/2007 Results Only [facility] [address] [place] [address] Phylicia Zabala MD [facility] [address] [place] [address] Social History Tobacco Use Types [...] Comments HPV DETECTION, HIGH RISK TYPES Routine 03/03/2007 10:06 EDT CYTOPATHOLOGY Routine 03/03/2007 0:00 EDT documented in this encounter Results * HUMAN PAPILLOMA VIRUS DNA TEST (03/03/2007 10:06 EDT) Specimen Description Cervix, ThinPrep vial [facility] Result Negative for HPV types 16, 18, 31, 33, 35, 39, 45, 51, 52, 56, 58, 59, and 68. [facility] Report Status Final [id number] [facility] 03/03/2007 10:0 6 EDT 03/10/2007 10:06 EDT Phylicia Zabala MD MICROBIOLOGY - GENE RAL ORDERABLES [facility] [address] [place] [address] * CYTOPATHOLOGY (03/03/2007 0:00 EDT) Pathology Report: CYTOPATHOLOGY REPORT Reports generated via electronic interface contain original data; however they are lacking the format of the original report. Caution should be taken when reading/interpreti ng unformatted reports. Name: ? SHANIKA, ALEENA ? Accession #: ? [id number] : ? 1960 (Age: 46) ??F ?Collect Date: ? 03/03/2007 Location: ? [facility] ? Receive Date: ? 03/05/2007 Provider: ?PHYLICIA ZABALA MD Copy to: ? Specimen/Source: ?ThinPrep Pap Test, Endocervix, processed on [facility] ThinPrep Imaging System, with manual evaluation Last Menstrual Period: ? 02/12/07 Treatment History: ? Endometrial biopsy: Neg 11/03 Other: ? HPVA - HPV testing requested if ASC-US on the current ThinPrep Pap test. ? SPECIMEN ADEQUACY ? Satisfactory for Evaluation - transformation zone component present GENERAL CATEGORIZATION ? Epithelial Cell Abnormality INTERPRETATION ? Squamous Cell Abnormality - Atypical squamous cells, undetermined significance (ASC-US). EDUCATIONAL NOTES/RECOMMENDATI ONS ? [facility] recommends following the 2001 Consensus Guidelines for the Management of Women with Cervical Cytological Abnormalities (YASSINE,2002;287:212 0-9). Management algorithms have been distributed by [facility] and are available online at www.ASCCP.org. ? Document reviewed and electronically signed by: ? CK RIDDLE MD ? Report Date: ??03/09/2007 11:47 End of Report [facility] 03/03/2007 03/05/2007 Phylicia Zabala MD PATHOLOGY ORDERABLE S [facility] [address] [place] [address] documented in this encounter Visit Diagnoses Not on filedocumented in this encounter Care Teams Air Conditioning Service Technician Relationship Specialty Start Date End Date Phylicia Zabala MD [address] [place] [id number] PCP - General 09/11/09 05/20/16 documented as of this encounter
--- OUTSIDE RECORDS SUMMARY | 2024-07-09 00:36 | XMS_ITS | Encounter Summary ---
Author Organization [facility] Address [facility] [place] [address] Care Team Providers Care Veterans Rehabilitation Counselor Name Role Phone Phylicia Zabala MD Primary Care Provider [phone] Encounter Details Date Type Department Care Team (Late st Contact Info) Description 02/21/2017 Telephone Dermatology at [facility] [address] [place] [id number] Danielle Morris MD [facility] [address] [place] [address] Social History Tobacco Use Types Packs/Day Years Used Date Smoking Tobacco: Never Assessed Sex and Gender Information Value Date Recorded Sex Assigned at Not on file Gender Identity Not on file Sexual Orientation Not on file documented as of this encounter Miscellaneous Notes * Telephone Encounter - Danielle Morris MD - 02/23/2017 6:07 PM EDT I called and spoke with pt about her biopsy result, which showed a wart on the left brow. No further intervention needed unless it recurs. Briefly discussed treatment options should the lesion recur.She appreciated the call. * Telephone Encounter - SofiFernandomayte Yu - 02/21/2017 12:16 PM EDT This patient called, returning Dr. Morris's call from yesterday. She can be reached back this afternoon at [phone]. documented in this encounter Plan of Treatment Not on file documented as of this encounter Visit Diagnoses Not on filedocumented in this encounter Care Teams Veterans Rehabilitation Counselor Relationship Specialty Start Date End Date Phylicia Zabala MD [address] [place] [address] PCP - General 10/23/10 documented as of this encounter
--- OUTSIDE RECORDS SUMMARY | 2024-07-09 00:36 | XMS_ITS | Encounter Summary ---
Author Organization [facility] Address [facility] [place] [address] Care Team Providers Care Store Clerk Cashier Name Role Phone Phylicia Zabala MD Primary Care Provider [phone] Encounter Details Date Type Department Care Team (Late st Contact Info) Description 04/16/2007 [place] [address] Abner Ambriz MD DERMATOLOGY Social History Tobacco Use Types Packs/Day Years Used Date Smoking Tobacco: Never Assessed Sex and Gender Information Value Date Recorded Sex Assigned at Not on file Gender Identity Not on file Sexual Orientation Not on file documented as of this encounter Plan of Treatment Not on file documented as of this encounter Procedures Procedure Name Priority Date/Time Associated Diagnosis Comments SURGICAL PATHOLOGY REPORT Routine 04/16/2007 1:09 PM EDT documented in this encounter Results * Surgical Pathology Report (04/16/2007 1:09 PM EDT) Surgical Pathology Report [id number] ? Location: The signing pathologist has (i) examined the relevant preparation(s) for the specimen(s) and (ii) rendered or confirmed the diagnosis(es). . ?Pathology Surgical Pathology Final Report Clinical Information Specimen Submitted: A - Face left jawline: ??Shave B - Right forearm: ??Shave Clinical History: A - Pearly pink papule 3 mm B - 1 cm nodule with central ulceration. Clinical Diagnosis: A - BCC vs. nevus B - SCC vs. keratoacanthoma Gross Description A - Labeled/Fixative: A - face, formalin. Qty/Size/Weight: ?Single shave, 0.5 cm, beauchamp-white skin. Sections/Processin g: ??Inked. Bisected. ??(T1) B - Labeled/Fixative: B - rt arm, formalin. Qty/Size/Weight: ?Single shave, 1.2 x 1.0 cm. Tissue Description: ?? Ovoid, nodular, pink-bo skin. Sections/Processin g: ??The specimen is inked and serially sectioned. ??(T1) ?crh/EJR Microscopic Description Slides reviewed, microscopic description not recorded. Diagnosis A. 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 Brittny Huertas ?Pathologist/Derm atopathologist ?(Electronic Signature) The attending pathologist whose signature appears on this report has reviewed all diagnostic slides and has edited the gross and/or microscopic portion of the report in rendering the final pathologic diagnosis. JOE REAL 04/16/2007 1:09 PM EDT Abner Ambriz MD PATHOLOGY/CYTOLOGY O RDERABLES JOE REAL documented in this encounter Visit Diagnoses Not on filedocumented in this encounter Care Teams Store Clerk Cashier Relationship Specialty Start Date End Date Phylicia Zabala MD [address] [place] [address] PCP - General 10/23/10 documented as of this encounter
--- OUTSIDE RECORDS SUMMARY | 2024-07-09 00:36 | XMS_ITS | Encounter Summary ---
[place] [address] Care Team Providers Care Revenue Field Auditor Name Role Phone Phylicia Zabala MD Primary Care Provider Encounter Details Date Type Department Care Team (Late st Contact Info) Description 11/15/2004 [place] [id number] Phylicia Zabala MD [address] [place] [address] Social History Tobacco Use Types Packs/Day Years [...] Associated Diagnosis Comments SURGICAL PATHOLOGY REPORT Routine 11/15/2004 7:59 PM EST documented in this encounter Results * Surgical Pathology Report (11/15/2004 7:59 PM EST) Surgical Pathology Report [id number] ? Location: The signing pathologist has (i) examined the relevant preparation(s) for the specimen(s) and (ii) rendered or confirmed the diagnosis(es). . ?Pathology Surgical Pathology Final Report Clinical Information Specimen Submitted: A - Endometrial bx Clinical History: DUB; fibroid R/O endometrial Ca Gross Description Labeled/Fixative: ? Labeled with the patient's name, formalin. Qty/Size/Weight: ?Fragments, 1.8 x 1.5 x 0.8 cm. Tissue Description: ?? Grullon-pink soft tissue, mucus, and blood clot. Sections/Processi ng: ??(T1) tbb/EJR Microscopic Description Slides reviewed, microscopic description not recorded. Diagnosis Endometrium, biopsy: ?? Proliferative endometrium (see Comment). CR-0 11/18/04 ARS 11/18/04 Verified by: ? Roacel Hawkins MD ?Pathologist ?(Electronic Signature) The attending pathologist whose signature appears on this report has reviewed all diagnostic slides and has edited the gross and/or microscopic portion of the report in rendering the final pathologic diagnosis. Comment There is no evidence of hyperplasia or malignancy. JOE REAL 11/15/2004 7:59 PM EST Phylicia Zabala MD PATHOLOGY/CYTOLOGY ORDERABLES Performing Organization Address City/State/[facility] Co de Phone Number JOE REAL documented in this encounter Visit Diagnoses Not on filedocumented in this encounter Care Teams Revenue Field Auditor Relationship Specialty Start Date End Date Phylicia Zabala MD [address] [place] [address] PCP - General 10/23/10 documented as of this encounter
--- OUTSIDE RECORDS SUMMARY | 2024-07-09 00:36 | XMS_ITS | Encounter Summary ---
[place] [address] Care Team Providers Care Telecommunications Line Installer Name Role Phone Phylicia Zabala MD Primary Care Provider Reason for Referral * Consultation (Routine) - Closed Specialty Diagnoses / Procedures Referred By Contac t Referred To Contact Rheumatology Diagnoses Positive ELISEO (antinuclear antibody) Phylicia Zabala MD [address] [place] [address] [facility] [address] [place] [id number] Referral ID Status Reason Start Date Expiration Date V isits Requested Visits Authorized [id number] Closed Consult, Test & Treat PCP Updated and/or Approved 09/30/2022 09/30/2023 6 6 Encounter Details Date Type Department Care Team (Late st Contact Info) Description 09/30/2022 Transcribe Orders eDH Incoming Referrals [phone] Phylicia Zabala MD [address] [place] [address] Positive ELISEO (antinuclear antibody) Social History Tobacco Use Types Packs/Day Years Used Date Smoking Tobacco: Never Smokeless Tobacco: Never Sex and Gender Information Value Date Recorded Sex Assigned at Not on file Gender Identity Not on file Sexual Orientation Not on file documented as of this encounter Plan of Treatment Scheduled Referrals Name Type Priority Associated Diagnoses Order Schedule Referral to Rheumatology Outpatient Referral Routine Positive ELISEO (antinuclear antibody) Ordered: 09/30/2022 documented as of this encounter Visit Diagnoses Diagnosis Positive ELISEO (antinuclear antibody) Other and unspecified nonspecific immunological findings documented in this encounter Care Teams Telecommunications Line Installer Relationship Specialty Start Date End Date Phylicia Zabala MD [address] [place] [address] PCP - General 10/23/10 documented as of this encounter
--- OUTSIDE RECORDS SUMMARY | 2024-07-09 00:36 | XMS_ITS | Referral Summary ---
Author Organization [facility] Address [address] [place] [address] Care Team Providers Care Matrix Supervisor Name Role Phone Phylicia Zabala MD Primary Care Provider [phone] Phylicia Zabala MD Unavailable [phone] Social History Tobacco Use Types Packs/Day Years Used Date Smoking Tobacco: Never Assessed Sex and Gender Information Value Date Recorded Sex Assigned at Not on file Gender Identity Not on file Sexual Orientation Not on file Plan of Treatment Not on file Care Teams Matrix Supervisor Relationship Specialty Start Date End Date Phylicia Zabala MD PCP - General 05/27/16 Phylicia Zabala MD [address] [place] [address] 05/21/16
--- OUTSIDE RECORDS SUMMARY | 2024-07-09 00:36 | XMS_ITS | Encounter Summary ---
Author Organization [facility] Address [facility] [place] [address] Care Team Providers Care Hemodialysis Patient Care Specialist Name Role Phone Phylicia Zabala MD Primary Care Provider [phone] Reason for Visit * Reason Comments Skin Check Encounter Details Date Type Department Care Team (Late st Contact Info) Description 03/19/2018 10:30 AM EDT Office Visit Dermatology at [facility] [address] [place] [address] Fermin Dominguez MD [facility] [address] [place] [address] [place] (actinic keratosis); Seborrheic keratoses; Lentigo; Keratosis pilaris; Dermal nevus; History of SCC (squamous cell carcinoma) of skin Social History Tobacco Use Types Packs/Day Years Used Date Smoking Tobacco: Never Smokeless Tobacco: Never Sex and Gender Information Value Date Recorded Sex Assigned at Not on file Gender Identity Not on file Sexual Orientation Not on file documented as of this encounter Progress Notes * Fermin Dominguez - 03/19/2018 10:30 AM EDT Images from the original note were not included. DERMATOLOGY - ESTABLISHED PATIENT FOLLOW-UP Date of service: 03/19/2018 Adelfo Chiu : 1960, 57 y.o. Chief Complaint: Chief Complaint Patient presents with ??? Skin Check HPI: Adelfo Chiu is a 57 y.o. female last seen by Dr. Morris on 02/17/2017. Ms. Chiu returns today for a full skin examination. No significant changes in her health since her last visit. Patient reports a dark spot on her right upper cutaneous lip, noticed within this past year. Patient also mentions a dry patch on her right forehead, present x 4 months, asymptomatic. Relevant Skin History: H/o SCC with KA features, right forearm s/p ED&C 03/200702/17/17 Skin, left brow, shave ?? biopsy: ?Wart, irritated. ?? Major past medical history from patient's perspective (updated today) Factor five Leiden mutation Family History: Melanoma: No Social History: - Self Employed, [employer] Medications: Current Outpatient Prescriptions Medication Sig Dispense [...] listed below. Genitalia not examined. Diagnosis/Skin findings/Assessment/Plan: 1. Actinic Keratosis - right upper cutaneous lip x 2: 0.3cm scaly irregular pink papule - Discussed nature, discussed treatment options such as cryotherapy, efudex and dovonex. - Denies a history of cold sores. - Combined decision to treat with Efudex mixed with Dovonex twice daily for 4 days. - Advised pt to send [facility] message in 1 week with response to treatment. If lesion persists advisedto call prior to 3 month f/u to consider biopsy at that time Rx: Efudex 5% cream mixed with Dovonex 0.005% pea sized amount Apply to affected areas twice daily for 4 days. 2. Seborrheic Keratoses - right forehead, right cheek, trunk and extremities: Multiple 0.4-0.6cm brown papules with waxy, stuck-on appearance. Milia-like cysts, comedone-like openings and/or fissuring on dermoscopy. - Discussed benign nature of lesion and provided reassurance. No treatment necessary at this time. 3. Solar Lentigo - left cheek: 4 mm light brown macule. Pt reassured 4. Dermal Nevi - back: upper back is 4 mm, mid back is 3 mm pink fleshy papule - Discussed benign nature of lesion and provided reassurance. No treatment necessary at this time. 5. Keratosis Pilaris - Bilateral posterior arms: spiny follicular based papules with slight erythema - Discussed benign nature and provided reassurance. - Encouraged OTC Amlactin, Vanicream, or CeraVe daily to moisturize. Rx: Urea 20% apply topically to the affected area once daily as needed till smooth. 6. H/O SCC on left forearm, NER -pt reassured RTC: 3 months for an Efudex follow up. Patient scheduled upon exiting the clinic today. Otherwise, 1 year for a full skin examination, sooner if needed. Reminder placed in the system to schedule. Instructed patient to call our clinic with any questions or concerns. The following photos were obtained with patient consent: Note initiated by YOLIS MENENDEZ LPN. I performed the above scribed service and agree with the accuracy of the documentation in this encounter. Reviewed and signed by: Fermin Dominguez MD Resident in Dermatology [facility] Patient seen and evaluated with staff rn cvicu: Tricia Birch MD Section of Dermatology [facility] * Tricia Birch MD - 03/19/2018 10:30 AM EDT I directly supervised Dr. Dominguez during this office visit. Dr. Dominguez presented the history and physical exam to me. I then saw and examined this patient with Dr. Dominguez. We reviewed the history and pertinent details and I confirmed the physical findings. I agree with the details of the history and physical exam as documented in Dr. Dominguez' note. Tricia Birch MD Staff Physician documented in this encounter Plan of Treatment Not on file documented as of this encounter Visit Diagnoses Diagnosis AK (actinic keratosis) Actinic keratosis Seborrheic keratoses Lentigo Other dyschromia Keratosis pilaris Other specified congenital anomaly of skin Dermal nevus Benign neoplasm of skin, site unspecified History of SCC (squamous cell carcinoma) of skin Personal history of other malignant neoplasm of skin documented in this encounter Care Teams Hemodialysis Patient Care Specialist Relationship Specialty Start Date End Date Phylicia Zabala MD [address] [place] [address] PCP - General 10/23/10 documented as of this encounter
--- OUTSIDE RECORDS SUMMARY | 2024-07-09 00:36 | XMS_ITS | Encounter Summary ---
Author Organization [facility] Address [address] [place] [address] Care Team Providers Care Ballistician Name Role Phone Phylicia Zabala MD Primary Care Provider Phylicia Zabala MD Unavailable [phone] Encounter Details Date Type Department Care Team (Late st Contact Info) Description 06/27/2022 Lab Requisition [facility] Pathology & Laboratory Medicine - [address] [address] Outr Resulting Lab, Provider Social History Tobacco Use Types Packs/Day Years Used Date Smoking Tobacco: Never Assessed Sex and Gender Information Value Date Recorded Sex Assigned at Not on file Gender Identity Not on file Sexual Orientation Not on file documented as of this encounter Plan of Treatment Not on file documented as of this encounter Procedures Procedure Name Priority Date/Time Associated Diagnosis Comments SPEP, INCLUDES QUANTITATION OF MONOCLONAL SPIKE PERFORMABLE Today 06/27/2022 8:19 EDT SS-B (LA) ANTIBODY, IGG Routine 06/27/2022 8:19 EDT ZZHN SSA ANTIBODIES BY JACINTO Routine 06/27/2022 8:19 EDT RHEUMATOID FACTOR Routine 06/27/2022 8:1 9 EDT ANTI NUCLEAR AB (ELISEO), IFA Routine 06/27/2022 8:19 EDT SPEP, INCLUDES QUANTITATION OF MONOCLONAL SPIKE Routine 06/27/2022 8:19 EDT PROTEIN, TOTAL Today 06/27/2022 8:19 EDT documented in this encounter Results * SPEP, INCLUDES QUANTITATION OF MONOCLONAL SPIKE PERFORMABLE (06/27/2022 8:19 EDT) Albumin % 63.3 55.8 - 66.1 % 06/28/2022 13:32 [facility] Albumin g/dL 4.4 3.6 - 5.2 g/dL 06/28/2022 13:32 [facility] Alpha-1 % 4.0 2.9 - 4.9 % 06/28/2022 13:32 [facility] Alpha-1 g/dL 0.30 0.15 - 0.40 g/dL 06/28/2022 13:32 [facility] Alpha-2 % 8.8 7.1 - 11.8 % 06/28/2022 13:32 [facility] Alpha-2 g/dL 0.60 0.50 - 1.00 g/dL 06/28/2022 13:32 [facility] Beta % 10.4 8.4 - 13.1 % 06/28/2022 13:32 [facility] Beta g/dL 0.70 0.60 - 1.20 g/dL 06/28/2022 13:32 [facility] Gamma % 13.5 11.1 - 18.8 % 06/28/2022 13:32 [facility] Gamma g/dL 0.90 0.60 - 1.60 g/dL 06/28/2022 13:32 [facility] SPEP Comment No apparent monoclonal protein seen on serum electrophoresis 06/28/2022 13:32 [facility] Comment:See scanned/suppleme ntary report. Total Protein 6.9 6.3 - 8.2 g/dL 06/28/2022 13:32 [facility] Blood VENOUS BLOOD / Unknown 06/27/2022 8:19 EDT 06/27/2022 18:48 EDT Provider Outr Resulting Lab CHEMISTRY & BLOOD GAS ORDERABLES Performing Organization Address [facility] de Phone Number [facility] [address] [place] [address] * PROTEIN, TOTAL (06/27/2022 8:19 EDT) Blood VENOUS BLOOD / Unknown 06/27/2022 8:19 EDT 06/27/2022 18:48 EDT Provider Outr Resulting Lab CHEMISTRY & BLOOD GAS ORDERABLES Performing Organization Address [facility] de Phone Number [facility] [address] [place] [address] * (ABNORMAL) RHEUMATOID FACTOR (06/27/2022 8:19 EDT) [facility] Rheumatoid Factor 22.3(H) <12.0 IU/mL 06/27/2022 20:36 EDT [facility] Blood VENOUS BLOOD / Unknown 06/27/2022 8:19 EDT 06/27/2022 18:48 EDT Provider Outr Resulting Lab CHEMISTRY & BLOOD GAS ORDERABLES Performing Organization Address [facility] de Phone Number [facility] [address] [place] [address] * SSB ANTIBODIES BY JACINTO (06/27/2022 8:19 EDT) Pathologist [facility] SSB Antibody 1.6 <20.0 Units 07/02/2022 13:41 EDT [facility] Comment: ? Negative: <20.0 Units ? Weak Positive: 20.0 - 39.9 Units ? Moderate Positive: 40.0 - 80.0 Units ? Strong Positive: >80.0 Units Results were obtained with the [employer] QUANTA Lite SS-B JACINTO. ??SS-B values obtained with different manufacturers' assay methods may not be used interchangeably. ??The magnitude of the reported IgG levels cannot be correlated to an endpoint titer. Blood VENOUS BLOOD / Unknown 06/27/2022 8:19 EDT 06/27/2022 18:48 EDT Provider Outr Resulting Lab IMMUNOLOGY A ND SEROLOGY ORDERABLES Performing Organization Address [facility] de Phone Number [facility] [address] [place] [address] * SSA ANTIBODIES BY JACINTO (06/27/2022 8:19 EDT) Pathologist [facility] SSA Antibody 1.2 <20.0 Units 07/02/2022 15:33 EDT [facility] Comment: ? Negative: <20.0 Units ? Weak Positive: 20.0 - 39.9 Units ? Moderate Positive: 40.0 - 80.0 Units ? Strong Positive: >80.0 Units Results were obtained with the [employer] QUANTA Lite SS-A JACINTO. ??SS-A values obtained with different manufacturers' assay methods may not be used interchangeably. ??The magnitude of the reported IgG levels cannot be correlated to an endpoint titer. Blood VENOUS BLOOD / Unknown 06/27/2022 8:19 EDT 06/27/2022 18:48 EDT Provider Outr Resulting Lab IMMUNOLOGY A ND SEROLOGY ORDERABLES Performing Organization Address [facility] de Phone Number [facility] [address] [place] [address] * (ABNORMAL) ANTI NUCLEAR AB (ELISEO), IFA (06/27/2022 8:19 EDT) Pathologist [facility] ELISEO Interpretation Positive(A) Negative 06/28/2022 15:23 EDT [facility] ELISEO Titer and Pattern 1 1:80 Speckled 06/28/2022 15:23 EDT [facility] Blood VENOUS BLOOD / Unknown 06/27/2022 8:19 EDT 06/27/2022 18:48 EDT Narrative [facility] - 06/28/2022 15:23 EDT Results were obtained with the [employer] Lite HEp-2 ELISEO Kit by indirect immunofluorescence. Provider Outr Resulting Lab IMMUNOLOGY A ND SEROLOGY ORDERABLES [facility] [address] [place] [address] documented in this encounter Visit Diagnoses Not on filedocumented in this encounter Care Teams Ballistician Relationship Specialty Start Date End Date Phylicia Zabala MD PCP - General 05/27/16 Phylicia Zabala MD [address] [place] [address] 05/21/16 documented as of this encounter
--- OUTSIDE RECORDS SUMMARY | 2024-07-09 00:36 | XMS_ITS | Encounter Summary ---
Author Organization [facility] Address [address] [place] [address] Care Team Providers Care Clerical Warehouse Worker Name Role Phone Phylicia Zabala MD Primary Care Provider [phone] Reason for Visit * Reason Onset Date Comments Returning Call 06/11/2015 Encounter Details Date Type Department Care Team (Late st Contact Info) Description 06/11/2015 Telephone [facility] Urgent Care - [address] [id number] Rosana Tucker, RN [address] [address] Returning Call Social History Tobacco Use Types Packs/Day Years Used Date Smoking Tobacco: Never Assessed Sex and Gender Information Value Date Recorded Sex Assigned at Not on file Gender Identity Not on file Sexual Orientation Not on file documented as of this encounter Miscellaneous Notes * Telephone Encounter - Rosana Tucker RN - 06/11/2015 1452 EDT No call received or made to this patient. I opened an incorrect patient chart. documented in this encounter Plan of Treatment Not on file documented as of this encounter Visit Diagnoses Not on filedocumented in this encounter Care Teams Clerical Warehouse Worker Relationship Specialty Start Date End Date Phylicia Zabala MD [address] [place] [address] [address] [place] [id number] PCP - General 09/11/09 05/20/16 documented as of this encounter
--- OUTSIDE RECORDS SUMMARY | 2024-07-09 00:36 | XMS_ITS | Encounter Summary ---
Author Organization [facility] Address [facility] [place] [address] Care Team Providers Care Retail Leasing Agent Name Role Phone Phylicia Zabala MD Primary Care Provider [phone] Reason for Visit * Reason Onset Date Comments Results 02/20/2017 Encounter Details Date Type Department Care Team (Late st Contact Info) Description 02/20/2017 Telephone Dermatology at [facility] [address] [place] [address] Danielle Morris MD [facility] [place] [address] Results Social History Tobacco Use Types Packs/Day Years Used Date Smoking Tobacco: Never Assessed Sex and Gender Information Value Date Recorded Sex Assigned at Not on file Gender Identity Not on file Sexual Orientation Not on file documented as of this encounter Miscellaneous Notes * Telephone Encounter - Daneille Morris MD - 02/20/2017 6:25 PM EDT I called regarding biopsy results. There was no answer. Left a general voicemail and informed pt I'll try to reach him/her another time. documented in this encounter Plan of Treatment Not on file documented as of this encounter Visit Diagnoses Not on filedocumented in this encounter Care Teams Retail Leasing Agent Relationship Specialty Start Date End Date Phylicia Zabala MD [address] [place] [address] [place] [address] PCP - General 10/23/10 documented as of this encounter
--- OUTSIDE RECORDS SUMMARY | 2024-07-09 00:36 | XMS_ITS | Encounter Summary ---
Author Organization [facility] Address [address] [place] [address] Care Team Providers Care Manager Line Name Role Phone Phylicia Deluca MD Primary Care Provider [phone] Encounter Details Date Type Department Care Team (Late st Contact Info) Description 10/07/2011 Results Only [facility] Laboratory Services - [facility] ([facility] [address] [place] [id number] Reji Mcleod MD [address] [place] [id number] Social History Tobacco Use Types Packs/Day Years Used Date Smoking Tobacco: Never Assessed Sex and Gender Information Value Date Recorded Sex Assigned at Not on file Gender Identity Not on file Sexual Orientation Not on file documented as of this encounter Plan of Treatment Not on file documented as of this encounter Procedures Procedure Name Priority Date/Time Associated Diagnosis Comments SURGICAL PATHOLOGY Routine 10/07/2011 0:00 EST documented in this encounter Results * SURGICAL PATHOLOGY (10/07/2011 0:00 EST) Pathology Report: SURGICAL PATHOLOGY REPORT Reports generated via electronic interface contain original data; however they are lacking the format of the original report. Caution should be taken when reading/interpreti ng unformatted reports. Name: ? SHANIKA, Michelle FLOOD ? Accession #: ? [id number] ? : ? 1960 (Age: 51) ??F ? Collect Date: ? 10/07/2011 ? Location: ? [facility] ? Receive Date: ? 10/08/2011 ? Provider: REJI MCLEOD MD Copy to: PHYLICIA DELUCA MD ? Final Pathologic Diagnosis: ? Skin/conjunctiva of upper eyelid, left, biopsy: - Portion of skin with chronic inflammation. ??See comment. Comment: ? The specimen consists of a minute portion of what appears to be dermis with small strands of skeletal muscle. ??There is chronic inflammation that could represent a portion of chalazion. ??(Dr. Woodard)/[facility] Document reviewed and electronically signed by: ZAFAR WOODARD MD Report ??Date: 10/09/2011 16:14 By the signature above, the attending physician certifies that he/she has personally conducted a gross and/or microscopic examination of the described specimens and rendered or confirmed the above diagnosis. Specimen(s) Received: ? Recurrent chalazion REJI Clinical History: ? Skin & chalazion capsule biopsy; clinical diagnosis code: 373.2 Gross Description: ? Received in formalin labelled [place] Nasreen and REJI lesion is a 0.2 x 0.1 cm irregular shave biopsy of bo-white skin. ??The specimen is submitted intact in a single cassette. ??(Aaron Boone)/[facility] End of Report TRISTAN SCOTT 10/07/2011 10/08/2011 9:0 9 EST Reji Mcleod MD PATHOLOGY ORDERABLES Performing Organization Address City/State/[facility] de Phone Number TRISTAN SCOTT [address] [place] [address] documented in this encounter Visit Diagnoses Not on filedocumented in this encounter Care Teams Manager Line Relationship Specialty Start Date End Date Phylicia Deluca MD [address] [place] [phone] PCP - General 09/11/09 05/20/16 documented as of this encounter
--- NOTE | 2024-07-09 07:00 | DI.MAMMO_ITS ---
Exam(s) MAMMO SCREENING EXAM: MAMMO SCREENING CLINICAL HISTORY: screening,z12.39. TECHNIQUE: Bilateral full field digital CC and MLO mammographic images were obtained with 3D tomosyn thesis and utilizing computer aided detection (CAD). COMPARISON: Prior mammograms were reviewed. FINDINGS: There has been no significant change in the appearance and distribution of the fibroglandular tissue. There are no new spiculated masses nor malignant appearing microcalcification groups. There is no significant architectural distortion nor skin thickening-retraction. IMPRESSION: No radiographic evidence of malignancy. BI-RADS Category 1 - Negative Breast Density - Category C - Heterogeneously dense Breast density Category C or D implies that the patient has dense breast tissue. Dense breast tissue can make it harder to find cancer on a mammogram. Dense breast tissue is also associated with an incr eased risk of breast cancer. This information about the result of the mammogram report was provided to the patient to raise their awareness. Use this report when you speak with the patient about their risks for breast cancer, which includes their family history. At that time, you may recommend additional screening tests (Ultrasoun d or MRI) as these tests may add significant information. A negative radiographic report should not delay biopsy if a dominant or clinically suspicious mass is present. Up to ten percent of cancers are not identified on mammography. A negative report may reinforce clinical impression. Adenosis and dense breasts may obscure an underlying neoplasm. False positive reports average 6 to 10%. Patient will receive a letter notifying them of these results.
== END 2024-07-09 00:54 ==
LOC: DI 00:35
PROVIDERS: PCP Family Medicine; Visit Provider Family Medicine
DX: Z12.31 Encounter for screening mammogram for malignant neoplasm of breast (principal)
CPT/HCPCS: 77063; 77067

== ENCOUNTER 2024-07-30 07:06 | Day surgery (SDC) | payer BC, SELFPAY ==
--- NOTE | 2024-07-29 12:32 | W.PREOPHP ---
Assessment and Plan Assessment and plan (1) Encounter for screening colonoscopy: Status: Acute Assessment and plan: Nasreen had the chance to ask any other questions about the procedure. Otherwise, there have been no other changes and we can proceed with a colonoscopy as planned. History of Present Illness History of Present Illness Chief Complaint: screening colonoscopy Narrative: Nasreen is 64 years old, and she is due for her next screening colonoscopy. She has been in her usual state of health since the last 1. She has had some occasional intermittent nonspecific abdominal discomfort, but it has resolved spontaneously, and she is currently not having any symptoms. Since her last colonoscopy, she also started on a new medication to help treat cholesterol, and this has been associated with some change in the character of her stools. Essentially they are a little more soft and loose. She denies any melena or hematochezia. She denies any family history of colorectal cancers. There have been no major changes to her history or physical. 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) Fatigue (Chronic) Uterine leiomyoma (Chronic 03/03/08) Right hip pain (Chronic 01/06/18) Polyp of colon (Chronic) 12/17/10; TUBULAR ADENOMA 05/06/14; NEG Neuropathy (Chronic 08/28/15) Lipoma (Chronic) right thigh posterior Lesion of lip (Chronic 02/19/16) Urinary, incontinence, stress female (Chronic) urinary frequency; Urologist recommended sling procedure Family history of factor V Leiden mutation (Chronic 02/19/16) she has 1 copy of gene 1 miscarriage will consider hematology consult Depressive disorder (Chronic) Degeneration of cervical intervertebral disc (Chronic 03/03/08) Cervical MRI-DDD showing neuroforaminal encroachment C3-4 on left; C6-7 on right Annual physical exam (Chronic 02/19/16) Medical History Chest pain f/U with PCP Surgical History eye surgery 3 eye surgeries for alignment, central serous retinopathy bunionectomy b/l Tonsillectomy and adenoidectomy Family History Mother Blind one eye Substance abuse FORMER Essential hypertension Depression Hyperlipidemia Father Essential hypertension Heart disease Hyperlipidemia Neoplasm BLADDER Stroke Brother Depression Brother Factor 5 Leiden mutation, heterozygous Grandfather Essential hypertension Heart disease Hyperlipidemia Neoplasm PROSTATE Grandfather Heart disease Myocardial infarction Stroke Grandmother Essential hypertension Heart disease Stroke Grandmother Heart disease Myocardial infarction Son Depression Son Depression Social History Smoking/Tobacco Use Status: Never Second Hand Exposure: Yes Smoking risk assessment performed?: Yes Alcohol Intake: current Alcohol Intake frequency: a few times a week Drug use: Never Substance use type: does not use Household members: other Details: 4 Housing: house Communication Needs: None Do you need help understanding health information?: Rarely current occupation: Self employed Pets and animals: Yes Pets and animals: dog(s) Do you think of yourself as: straight/heterosexual Current gender identity: female What type of physical activity do you participate in: walking and bicycling Duration: 30-45 minutes/day Frequency: 3-4 times per week Yanira/Anabaptist: Congregation Special yanira needs: No Seatbelt use: always Helmet use: Yes Helmet use: always Drive intox or ride w/intox trailer driver: No Do you feel safe at home: Yes Do you feel safe in your relationship?: Yes Meds Allergies and Home Medications Allergies Allergy/AdvReac Type Severity Reaction Status Date / Time doxycycline Allergy Intermediate RASH Verified 07/30/24 07:29 W/ITCHING ALL OVER Sulfa (Sulfonamide Allergy Unknown SWELLING Verified 07/30/24 07:29 Antibiotics) Home Medications ?Medication ?Instructions ?Recorded ?Confirmed ?Type multivitamin (Daily Multi-Vitamin 1 ea PO DAILY 05/06/14 07/30/24 History tablet) albuterol sulfate 90 mcg/actuation 2 puff inhalation QID PRN 05/19/23 07/30/24 Rx aerosol inhaler (Proventil HFA) shortness of breath or wheezing #8.5 grams aspirin 81 mg chewable tablet 81 mg PO DAILY #1 tab-cap 05/19/23 07/28/24 Rx melatonin 5 mg chewable tablet 5 mg PO HS PRN 05/19/23 07/28/24 History atorvastatin 20 mg tablet 20 mg PO QPM #90 tabs 12/02/23 07/30/24 Rx omeprazole 20 mg capsule,delayed 20 mg PO DAILY #90 caps 04/01/24 07/30/24 Rx release sertraline 100 mg tablet 100 mg PO DAILY #90 tabs 04/01/24 07/30/24 Rx biotin 1 mg capsule 1 mg PO DAILY 05/12/24 07/30/24 History coenzyme Q10 100 mg capsule 100 mg PO DAILY 05/12/24 07/30/24 History (CoQ-10) vitamin E (dl, acetate) 180 mg 180 mg PO DAILY 05/12/24 07/30/24 History (400 unit) capsule methylphenidate HCl 10 mg tablet 5 mg (1/2 x 10 mg) PO TID PRN 06/21/24 07/30/24 Rx [employer] #135 tabs Exam Const General: cooperative, healthy appearing and not in acute distress Neck Neck: normal visual inspection, no lymphadenopathy and supple Resp Effort & Inspection: normal respiratory effort Auscultation: clear to auscultation bilaterally Cardio Jugular venous pressure: no JVD Rate: regular rate Rhythm: regular rhythm Heart Sounds: S1 normal and S2 normal GI Inspection: normal to inspection Palpation: soft, no guarding, no hernias and nontender Percussion: normal to percussion Auscultation: normal bowel sounds Neuro General: patient alert, patient awake and patient oriented x3 Psych Appearance: grossly normal
--- NOTE | 2024-07-29 12:34 | PDOC.DSDIS_ITS ---
Date of service: 07/30/24 Time of Service: 09:39 Discharge Plan Disposition Patient Disposition: Home Condition: Good Discharge Details Reason For Visit: screening colonoscopy Attending Provider: Fermin Paz Primary Care Provider: Phylicia Zabala Home Meds and New Rx's Prescriptions: Continued melatonin 5 mg tablet,chewable 5 mg PO HS PRN albuterol sulfate [Proventil HFA] 90 mcg/actuation HFA aerosol inhaler 2 puff inhalation QID PRN (Reason: shortness of breath or wheezing) Qty: 8.5 5RF aspirin 81 mg tablet,chewable 81 mg PO DAILY Qty: 1 0RF biotin 1 mg capsule 1 mg PO DAILY vitamin E (dl, acetate) 180 mg (400 unit) capsule 180 mg PO DAILY coenzyme Q10 [CoQ-10] 100 mg capsule 100 mg PO DAILY atorvastatin 20 mg tablet 20 mg PO QPM Qty: 90 4RF omeprazole 20 mg capsule,delayed release(DR/EC) 20 mg PO DAILY Qty: 90 4RF sertraline 100 mg tablet 100 mg PO DAILY Qty: 90 4RF methylphenidate HCl 10 mg tablet 5 mg PO TID MDD 1.5 tabs/ 15mg daily PRN (Reason: [employer]) Qty: 135 0RF multivitamin [Daily Multi-Vitamin] 1 EACH tablet 1 ea PO DAILY Discontinued bisacodyl 5 mg tablet,delayed release (DR/EC) 5 mg PO ONCE Qty: 4 0RF Rx Instructions: Per Colonoscopy bowel prep instructions polyethylene glycol 3350 17 gram/dose powder 238 g PO ONCE Qty: 238 0RF Rx Instructions: For Colonoscopy bowel prep, as directed by office Discharge Instructions Additional Instructions: Nasreen, It was a pleasure seeing you today, and I hope the colonoscopy was comfortable for you. Your procedure was totally negative, or normal. I did not see any s igns of tumors or polyps. With a history of tubular adenoma, patients are typically advised to follow-up for 5-year colonoscopies. Most patients will go back to 10-year colonoscopies if they have had two consistently negative colonoscopies during the 5-year intervals. As best I can tell, you had a positive colonoscopy in 2010, but I cannot find the results of anything in between then and now. So if that is the case that 2010 was your last colonoscopy, then you need another one in 5 years. Alternatively, if you have had 1 in between the 2011 colonoscopy and today's, then it would be reasonable to switch back to a 10-year interval. If you have any questions at all, please do not hesitate to let me know. 1. If tolerated, consume a soft, low fiber diet for 1-2 days. 2. Do not drive, drink alcohol, operate machinery, make critical decisions, or do activities that require coordination or balance for 24 hours. 3. Because air was put into your colon during the procedure, expelling air from your rectum (passing gas or farting) is normal. 4. You may not have a bowel movement for 1-3 days because of the colonoscopy prep. This is normal. 5. Go directly to the emergency room if you notice any of the following: Develop chills (warm to touch), or if you have a thermometer and your temperature is above 101 Difficulty breathing or difficultly swallowing Persistent vomiting Severe abdominal pain, other than gas cramps Severe chest pain Black, tarry stools Any bleeding ? exceeding one tablespoon 6. Call your physician if the site where your intravenous was started becomes r ed, swollen, painful, and warm to touch. 7. Your physician has reviewed your pre-procedure medications. Please continue to take those medications as previously ordered. You will be given specific info rmation/education regarding any changes to your medications before leaving. Activity:: Activity as Tolerated Diet:: As Tolerated Discharge Orders Discharge Orders: Discharge Order (Routine); Ordered 07/29/24 Ordered By: Fermin Paz DS: Diagnosis Discharge Diagnosis (1) Encounter for screening colonoscopy: Status: Acute Asessment and Plan: Negative screening colonoscopy today
--- NOTE | 2024-07-29 12:36 | COLE_ITS ---
Date of service: 07/30/24 Time of Service: 09:43 Colonoscopy Report Date of procedure: 07/30/24 Pre-op diagnosis general: screening colonoscopy Post-op diagnosis procedure note: other (Negative screening colonoscopy) Procedure: colonoscopy Surgeon: Fermin Paz Anesthesia Type: General:No Airway Estimated blood loss (mL): 0 Pathology: none sent Complications: None Disposition: same day Indications: Nasreen is a 64 year old woman who needs her next screening colonoscopy Prep: Miralax/Dulcolax Procedure Start Time: 09:22 Procedure End Time: 09:32 Retraction Time: 6 Findings: Negative screening colonoscopy Procedure Description: After the induction of anesthesia, and with the patient in left lateral decubitus position, I began by performing an external anorectal exam.? Perineum and skin were normal, as was the anal verge.? There was no evidence of external hemorrhoids.? Next, I performed a digital rectal exam.? I did not appreciate any abnormal findings.? Next, I advanced a colonoscope into the rectal vault.? I performed retroflexion.? This appeared normal.? Using insufflation, I then advanced the colonoscope beyond the rectal folds and into the sigmoid colon before advancing towards the cecum.? The quality of the prep was excellent.? The scope was noted to be in the cecum by identification of the ileocecal valve and appendiceal orifice.? I then began withdrawing the colonoscope using repeated irrigation as necessary for full evaluation of the colonic mucosa. ?Once the scope was withdrawn to the level of the rectum, great care was taken to examine portions of the rectal folds.? Finally, the scope was withdrawn and the patient was brought to the same-day surgery recovery unit as the anesthetic wore off. ?The findings and instructions were shared with the patient prior to discharge. [place] Bowel Prep [place] Bowel Prep Right Colon: 3 Left Colon: 3 Transverse Colon: 3 Total Score: 9
[2024-07-30 07:31] VITALS: BP 128/70; PULSE 71; RESP 18; TEMP 36.3; O2SAT 98
[2024-07-30] MEDS: Lactated Ringers 1,000 ML 80 ML IV (07:57)
--- NOTE | 2024-07-30 08:08 | ANES.PREOP_ITS ---
General Info Date of Service Date Performed: 07/30/24 Height: 5 ft 0.5 in Weight: 66.1 kg Body Mass Index (BMI): 28.0 Surgical Procedure: Operation Date: 07/30/24 08:50 Proposed Procedure Side Surgeon janet Paz MD Meds Allergies and Home Medications Allergies Allergy/AdvReac Type Severity Reaction Status Date / Time doxycycline Allergy Intermediate RASH Verified 07/30/24 07:29 W/ITCHING ALL OVER Sulfa (Sulfonamide Allergy Unknown SWELLING Verified 07/30/24 07:29 Antibiotics) Home Medication ?Medication ?Instructions ?Recorded multivitamin (Daily Multi-Vitamin 1 ea PO DAILY 05/06/14 tablet) albuterol sulfate 90 mcg/actuation 2 puff inhalation QID PRN 05/19/23 aerosol inhaler (Proventil HFA) shortness of breath or wheezing #8.5 grams aspirin 81 mg chewable tablet 81 mg PO DAILY #1 tab-cap 05/19/23 melatonin 5 mg chewable tablet 5 mg PO HS PRN 05/19/23 atorvastatin 20 mg tablet 20 mg PO QPM #90 tabs 12/02/23 omeprazole 20 mg capsule,delayed 20 mg PO DAILY #90 caps 04/01/24 release sertraline 100 mg tablet 100 mg PO DAILY #90 tabs 04/01/24 biotin 1 mg capsule 1 mg PO DAILY 05/12/24 coenzyme Q10 100 mg capsule 100 mg PO DAILY 05/12/24 (CoQ-10) vitamin E (dl, acetate) 180 mg 180 mg PO DAILY 05/12/24 (400 unit) capsule methylphenidate HCl 10 mg tablet 5 mg (1/2 x 10 mg) PO TID PRN 06/21/24 Focus and Energy #135 tabs Current Visit Medications: Current Medications Generic Name Dose Route Start Last Admin Trade Name Freq PRN Reason Stop Dose Admin Hyoscyamine Sulfate 0.125 mg 07/29/24 12:37 Hyoscyamine 0.125 Mg Sl/Oral/Chew SL 08/28/24 12:36 DIRECTED PRN Ringer's Solution 1,000 mls @ 80 mls/hr 07/30/24 06:00 07/30/24 07:57 IV 07/30/24 23:59 80 mls/hr INFUSION SHARON Administration IV Miscellaneous Supplies 1 each 07/30/24 06:00 Iv Access IV 07/30/24 23:59 DIRECTED SHARON Ondansetron HCl 4 mg 07/29/24 12:37 Ondansetron 4 Mg/2 Ml Vial IVP 08/28/24 12:36 Q4H PRN PRN Nausea / Vomiting Sodium Chloride 0 ml 07/30/24 06:00 Normal Saline Flush 10 Ml Syr IV 07/30/24 23:59 PRN PRN Sodium Chloride 0 ml 07/30/24 06:00 Normal Saline 10 Ml Vial IJ 07/30/24 23:59 DIRECTED PRN Sterile Water 0 ml 07/30/24 06:00 Water,Injection,Sterile 10 Ml Vial IJ 07/30/24 23:59 DIRECTED PRN PFSH Active Problems Active Problems: Problem Status Onset Code Encounter for screening colonoscopy Acute Z12.11 ELISEO positive Acute R76.8 Rheumatoid factor positive Acute R76.8 Dry eye Acute H04.129 Factor V Leiden carrier Acute D68.51 Hypercholesteremia Acute E78.00 Attention deficit hyperactivity disorder, combined type Chronic 01/21/13 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 Fatigue Chronic R53.83 Uterine leiomyoma Chronic 03/03/08 D25.9 Right hip pain Chronic 01/06/18 M25.551 Polyp of colon Chronic K63.5 Neuropathy Chronic 08/28/15 G62.9 Lipoma Chronic D17.9 Lesion of lip Chronic 02/19/16 K13.0 Urinary, incontinence, stress female Chronic N39.3 Family history of factor V Leiden mutation Chronic 02/19/16 Z83.2 Depressive disorder Chronic F32.9 Degeneration of cervical intervertebral disc Chronic 03/03/08 M50.30 Annual physical exam Chronic 02/19/16 Z00.00 Medical History Medical History Chest pain f/U with PCP Surgical History Surgical History eye surgery 3 eye surgeries for alignment, central serous retinopathy bunionectomy b/l Tonsillectomy and adenoidectomy Tobacco Smoking/Tobacco Use Status: Never Passive smoking exposure: Yes (growing up) Second hand exposure: Yes Alcohol Alcohol Intake: current Alcohol intake frequency: a few times a week Substance Use Substance use: Never Substance use type: does not use Vital Signs and Lab Results Vital Signs Most Recent Vital Signs in EMR: Most Recent Vital Signs Temp Pulse Resp BP Pulse Ox 36.3 C L 71 18 128/70 98 07/30/24 07:31 07/30/24 07:31 07/30/24 07:31 07/30/24 07:31 07/30/24 07:31 Lab Results Blood Type / Crossmatch: 2 No Data to Display Complete Blood Count: 2 No Data to Display Complete Metabolic Panel: 2 No Data to Display Liver Function Panel: 2 No Data to Display Coagulation Panel: 2 No Data to Display Cardiac Panel: 2 No Data to Display Arterial Blood Gas: 2 No Data to Display Venous Blood Gas: 2 No Data to Display Pancreas Panel: 2 No Data to Display Thyroid Panel: 2 No Data to Display Infectious Disease: 2 No Data to Display Blood Cultures: 2 No Data to Display Toxicology Panel: 2 No Data to Display Imaging and Studies Imaging and Studies Study information below may be from another EMR and interpreted by another provider. Please see original notes in EMR for more complete details. EKG Summary: EKG PATIENT NAME: Michelle VOSS UNIT #: [id number] ORDERING PROVIDER: Darnell Haney PRIMARY CARE PROVIDER: MARIA ISABEL DELUCA MD, DC DATE/TIME OF SERVICE: 09/07/201906 : 1960 PERFORMING LOCATION: ER APPROVED REPORT Exam: Resting ECG Patient Location: E HR:62 bpm ECG Measurements Heart Rate 62 AXIS NE 176 P 64 QRSd 80 QRS 33 QT 404 T32 QTc 411 Conclusion Sinus rhythm...normal P axis, V-rate 60- 99 - <Electronically signed by KIM JOHNSON MD in OV> E-Sign Date: 09/07/20 E-Sign Time: 1911 ADDENDUM APPROVED REPORT Exam: Resting ECG Patient Location: E HR:62 bpm ECG Measurements Heart Rate 62 AXIS NE 176 P 64 QRSd 80 QRS 33 QT 404 T32 QTc 411 Conclusion Sinus rhythm...normal P axis, V-rate 60- 99 I have reviewed and I agree with the emergency room physician???s ECG interpretation. Electronically signed by: <Electronically signed by Dougie Michaud M.D. in OV> 09/08/20 1207 Cosigned by: Stress Test Summary: STRESS TEST PATIENT NAME: Michelle VOSS UNIT #: [id number] ADMITTING PROVIDER: MANISH WEINER MD PRIMARY CARE PROVIDER: MARIA ISABEL DELUCA M.D., OR DATE OF SERVICE: 05/09/16 : 1960 *[facility]* *[facility]* [address] [place] [address] Stress Electrocardiography Oz protocol Date of study: 05/09/2016 *PATIENT PRESENTATION* Height: 167.6cm ((66in) ) Blood Pressure: Weight: 65kg ((143lb) ) BSA: 1.74m^2 Ordering physician: Luca Cantu Impressions: Normal study after maximal exercise. Indication: R07.9. History: REASON FOR TESTING: INTERMITTANT CHEST PAIN IN THE CENTER OF HER CHEST, WELL PAIN IN THE BACK OF HER NECK WITH EXCERCISE AND AT REST. PT DISCRIBES PAIN PRESSURE, BURNING AND OCCASIONALLY SHARP. THE SHARP PAIN CAN LAST FOR ONLY SECONDS WHEREAS THE PRESSURE AND BURNING CAN LAST FOR HOURS. THIS PAIN IS RELIEVED WITH ASPRIN AND REST. NEW ONSET OF COUGH, DX W/ ASHTMA. PT COMPLAINS THAT SHE IS RECENTLY MORE FATIGUED AND THAT HER ANKLES ARE OFTEN SWOLLEN. HX: NON-CONTRIBUTORY FAMILY HX: FACTOR V LEIDEN IN BROTHER, EARLY IN FAMILY FROM CAD. MOTHER AND FATHER WITH HYPERTENSION AND HYPERLIPIDEMIA, FATHER WITH HEART DISEASE, MT, AND CVA. SMOKING: NEVER SMOKER EXCERCISE: 1-3 DAYS A WEEK FOR 20 MINUTES TO AN 1.5 HOURS AT A TIME. PMH: Asthma. Risk factors: Family history of coronary artery disease. Dyslipidemia. Cholesterol: 265mg/dl. HDL: 62mg/dl. LDL: 185mg/dl. Triglycerides: 101mg/dl. ALLERGIES: SULFA, DOXYCYCLINE MEDICATIONS: PROAIR HFA 2 PUFFS Q4H NEEDED, CALTRATE 600+D 1 DAILY, FLUOXETINE 20 MG DAILY, LACTOBACILLUS ACIDOPHILUS 1 CAP DAILY, METHYPHENIDATE HCL 10 MG 3X/DAY, MVI 1 DAILY, OMEGA 3 FATTY ACIDS 1 DAILY, VIT B COMPLEX 1 DAILY. Protocol: Oz protocol. Baseline ECG: Normal ECG. Stress protocol: + +---+ + !Stage !HR !BP (mmHg) ! + +---+ + !Baseline supine !56 !118/82 (94)! + +---+ + !Baseline standing !62 !118/70 (86)! + +---+ + !Stage I; 1.7mph, 10degrees; 3 min !92 !130/60 (83)! + +---+ + !Stage II; 2.5mph, 12degrees; 3 min !112!150/60 (90)! + +---+ + !Stage III; 3.4mph, 14degrees; 3 min!126!160/60 (45)! + +---+ + !Immediate post stress !145!130/60 (83)! + +---+ + !Recovery; 3 min !96 !154/70 (98)! + +---+ + !Recovery; 6 min !83 !120/66 (84)! + +---+ + * Stress results: The rate-pressure product for the peak heart rate and blood pressure was 63005nt Hg/min. Stress ECG: MAX HR: 154, 93% OF TARGET. NORMAL BLOOD PRESSURE RESPONSE. METS: 13.48. NO ECTOPY . NO ISCHEMIC CHANGES SEEN. Study data: [id number] Manish Weiner MD supervised and was readily available during the procedure. This study was interpreted by [facility]. Study status: Routine. Consent: The risks, benefits, and alternatives to the procedure were explained to the patient and informed consent was obtained. Procedure: Initial setup. A baseline ECG was recorded. Surface ECG leads and manual cuff blood pressure measurements were monitored. Heart sounds: Normal. Lung sounds: Normal. Treadmill exercise testing was performed using the Oz protocol. Study completion: The patient tolerated the procedure well and was discharged from the lab. Discharge: The patient left the laboratory in stable condition. Birthdate: Patient birthdate: 1960. Sex: Gender: female. Study date: Study date: 05/09/2016. Study time: 10:00 AM. Electronically signed by Manish Weiner MD 05/09/2016 15:55 - Dictated by: MANISH WEINER MD Dictated:: 05/09/16 1000 05/09/16 1555 Transcribed Date: Transcribed Time: By: MAURICE This is privileged, confidential information, intended only for the provider named. Any use or distribution by any person other than this provider is strictly prohibited. If you receive this report in error, please notify us immediately at [phone] and return the original report to us at the address above. Thank you. Anesthesia Assessment and Plan Anesthesia History Personal History: No History of Anesthesia Complications Family History: No Family History of Anesthesia Complications Exercise Tolerance Exercise Tolerance: Metabolic Equivalents>4 Pertinent Negatives Pertinent Negatives: No Symptoms of GERD and No History of CVA/TIA Cardiac & Pulmonary Exam Cardiac Exam: Normal S1/S2 Heart Sounds Pulmonary Exam: Clear Bilateral Breath Sounds Cardiac and Pulmonary Comment:: Still has occaisional chest pain/pressure. Uncertain of origin. Comes on at rest and when active. Implantable Cardiac Device Does patient have a Pacemaker or an ICD?: No Airway Exam Known Difficult Airway: No Mallampati Class: 2 Mouth Opening: Normal (> 3cm) Thyromental Distance: Greater than 3 cm Neck Range of Motion: Full ROM Neck Circumference: Normal Teeth Condition: Normal Dentition Tooth Numberin 1. indicated fractured tooth. not loose ASA Classification ASA Score: ASA 3 Emergency Case?: No NPO Status NPO Status: NPO Clears >2 hours, Solids >8 hours Anesthesia Plan Resuscitation Status: Full Code Anesthesia Technique: General Anesthesia Airway Planned: Natural Airway Monitors Used: Standard Monitors
[2024-07-30 09:01] VITALS: BMI 28.0
[2024-07-30 09:47] VITALS: BP 108/65; PULSE 69; RESP 16; TEMP 36.6; O2SAT 97
[2024-07-30 09:58] VITALS: BP 139/77; PULSE 68; RESP 16; TEMP 36.3; O2SAT 98
--- NOTE | 2024-07-30 10:29 | W.ANESPOSTOP ---
Postoperative Evaluation Date, Time and Location Date Performed: 07/30/24 Time Performed: 09:48 Patient Location: Day Surgery Unit Vital Signs Most Recent Imported Vital Signs: Most Recent Vital Signs Temp Pulse Resp BP Pulse Ox 36.3 C L 68 16 139/77 98 07/30/24 09:58 07/30/24 09:58 07/30/24 09:58 07/30/24 09:58 07/30/24 09:58 Pain Score Most Recent Pain Score: Most Recent Pain Score Pain Level 0 07/30/24 07:31 Assessment Mental Status: Awake (Alert & Oriented to Patient Baseline) Airway and Respiratory Function: Patent airway with normal (patient baseline) respiratory exam Cardiovascular Function: Hemodynamically Stable Hydration Status: Adequately Hydrated Nausea & Vomiting: No Nausea or Vomiting Pain: Pt. Denies Any Pain Peripheral Nerve Block: Patient did not receive a nerve block
== END 2024-07-30 10:13 | disposition home or self-care (01) ==
LOC: SUR 07:08
PROVIDERS: PCP Family Medicine; Visit Provider Surgery
PROC: 0DJD8ZZ Inspection of Lower Intestinal Tract, Via Natural or Artificial Opening Endoscopic (ICD-10-PCS; CPT 45378; principal; 2024-07-30 08:45)
DX: Z12.11 Encounter for screening for malignant neoplasm of colon (principal)
CPT/HCPCS: 45378; J2704

== ENCOUNTER 2025-08-30 02:08 | Outpatient (CLI) | payer OTHER, MEDICARE, SELFPAY ==
[2025-08-30] MEDS: Gadoterate meglumine 20 ML VIAL IVP (08:59)
--- NOTE | 2025-08-30 09:05 | DI.MRI_ITS ---
Exam(s) MR CERVICAL SPINE WO EXAM: MR CERVICAL SPINE WO CLINICAL HISTORY: evaluate for HNP and brain lesions,FACIAL AND HAND PARESTHESIA,R20.2 TECHNIQUE: Multiplanar multisequence MRI of the cervical spine was performed without intravenous contrast. COMPARISON: No exams were available for comparison FINDINGS: CERVICOMEDULLARY JUNCTION: Intact with no evidence of cerebellar tonsillar ectopia. No obvious abnormality of the odontoid process. No evidence of Chiari 1 malformation. CERVICAL SPINAL CORD: There is no abnormal signal in the cervical spinal cord and no evidence of focal cord atrophy nor focal cord swelling. No evidence of syringomyelia. OSSEOUS:There are no cervical fractures evident. No significant osseous lesions in the cervical vertebrae. There is straightening of the cervical spine curvature evident. INDIVIDUAL LEVELS: C2-3: Mild disc space narrowing. Posteriorly there is mild annular bulging. There is a left-sided disc-osteophyte complex which minimally impresses the anterior left thecal sac but not the spinal cord. There is some degenerative changes in the facet joints bilaterally. There is no foraminal stenosis on the right side. There is mild left-sided foraminal stenosis at this level. C3-4: Moderate decreased disc height. Posteriorly there is broad annular bulging with central subligamentous disc protrusion and mild central canal stenosis. There are bilateral Luschka joint osteophytes, slightly larger on the left side. There is facet arthropathy bilaterally. Significant foraminal stenosis evident on the left side related to the facet arthropathy and Luschka joint osteophyte. On the right side there is lesser facet arthropathy and milder foraminal stenosis on the right. C4-5: Normal disc height and signal. No disc herniation or central canal stenosis evident at this level. There is facet arthropathy, left more than right.There is no foraminal stenosis on the right side. Mild foraminal stenosis on the left side. C5-6: This level exhibits moderate advanced chronic disc space narrowing as well as anterior osseous lipping. Posteriorly there is annular bulging and bilateral disc-osteophyte complexes, larger on the left side. There is mild central spinal canal stenosis. On the left side the disc-osteophyte complex is prominent and ex dense into the exiting left neural foramen. This results in significant left-sided foraminal stenosis at this level despite the fact that there are no prominent degenerative facet joint changes on the left side at this level. On the right side at this level there are Luschka joint osteophytes but no significant foraminal stenosis as the facet joint on the right side appears unremarkable. C6-7: This level also exhibits chronic advanced disc space narrowing and anterior osseous lipping. Posteriorly there is annular bulging with mild central spinal canal stenosis and right larger than left Luschka joint osteophytes. Mild foraminal stenosis on the left side. On the right side the more prominent disc-Luschka joint complex results in moderate-severe right-sided foraminal stenosis. There are only mild degenerative changes in the facet joints at this level. C7-T1: No disc herniation nor central canal stenosis. No facet arthropathy.No foraminal stenosis. T3-T4: In the peripheral aspect of the field of view of the sagittal images there is a E right-sided disc protrusion noted at this level. This is difficult to assess accurately as this level is not included on the axial images and is incidentally noted on the sagittal images. IMPRESSION: 1. Multilevel chronic degenerative disc disease as described in detail per individual level above. 2. There is mild central spinal canal stenosis evident at C5-6 and C6-7 levels and there is multilevel asymmetric foraminal stenosis mostly related to asymmetric disc-Luschka joint osteophyte complexes as described individually above. 3. There is also multilevel facet arthropathy as described above. 4. There is no abnormal signal in the cervical spinal cord and no evidence of focal cord swelling nor focal cord atrophy. Incidentally noted is right sided disc protrusion at the T3-4 level seen on the sagittal images. Difficult to assess accurately as this level in the thoracic spine is not covered on the axial sequences. If clinically indicated this can be further studied with thoracic spine MRI to determine the severity of this T3- 4 level disc protrusion as well as also to determine if there are additional level disc protrusion in the thoracic spinal column. DATA REPOSITORY:
--- NOTE | 2025-08-30 09:55 | DI.MRI_ITS ---
Exam(s) MR BRAIN WO/W EXAM: MR BRAIN WO/W CLINICAL HISTORY: eval for plaques, BRAIN LESIONS,FACIAL TECHNIQUE: Multiplanar multisequence MRI of the brain was performed. Both noninfused and contrast infused sequences were performed. IV Contrast injected was 14 cc Dotarem. COMPARISON: No exams were available for comparison FINDINGS: CEREBRAL PARENCHYMA: No evidence of intracranial hemorrhage, mass effect nor shift of midline structure. No extraaxial fluid collections. Ventricles are not enlarged nor shifted. There is no evidence of cerebellar tonsillar ectopia There is no significant signal abnormality in the cerebellar hemispheres. There is symmetrical signal abnormality both sides of the shabbir, not associated with hemorrhage, surrounding edema, enhancement, nor restricted diffusion. No abnormal signal evident in the midbrain and thalami. There are multiple small sub cm FLAIR bright foci of signal abnormality in the bilateral Reyna ventricular white matter, not associated with hemorrhage, surrounding edema, enhancement, nor restricted diffusion. The largest of these measures 5-6 mm. In addition, there is a CSF intensity finding on the right side between the posterior limb of the right internal capsule and the right thalamus, this measuring 12 x 5 mm and exhibiting CSF signal on all sequences and not exhibiting internal enhancement. This is probably benign developmental sub lenticular cyst. DWI: No areas of restricted diffusion to suggest acute ischemic event. SWI: No microhemorrhages evident. There are no ring enhancing lesions in the brain. There is no abnormal meningeal enhancement. PITUITARY GLAND: There appears to be a small cyst in the posterior pituitary slightly left of center measuring approximately 2-3 mm as seen on the sagittal T2 images. There is no interruption of the superior border of the pituitary gland and no deviation of the pituitary stalk/infundibulum. FLOW VOIDS: The expected flow void are noted. No evidence of obvious aneurysm nor obvious vascular malformation. Incidentally noted are posterior communicating arteries on both sides of the [id number]. This explains the small vertebral and basilar arteries, this on a developmental basis. The po sterior cerebral arteries are predominantly fed by the posterior communicating arteries. PARANASAL SINUSES: The visualized paranasal sinuses appear unremarkable. ORBITS: No obvious abnormal findings. IMPRESSION: 1. There are multiple small nonspecific FLAIR bright foci of signal abnormality in the bilateral periventricular white matter which are not associated with hemorrhage, surrounding edema, enhancement, nor restricted diffusion. These are probably sequelae of chronic small-vessel white matter disease. No evidence of acute lacunar infarct. Similar findings are seen on both sides of the shabbir. The appearance of these finding is not typical of demyelinating disease such as multiple sclerosis. 2. There is a 12 by 5 mm right-sided developmental sub lenticular cyst incidentally noted. Also incidentally noted is a 2-3 mm cystic appearing lesion in the posterior pituitary gland, slightly left of center. 3. other findings as above. DATA REPOSITORY:
== END 2025-08-30 02:28 ==
PROVIDERS: PCP Family Medicine; Visit Provider Family Medicine
DX: R20.2 Paresthesia of skin (principal); R93.0 Abnormal findings on diagnostic imaging of skull and head, not elsewhere classified
CPT/HCPCS: 70553; 72141

== ENCOUNTER 2025-09-23 03:28 | Outpatient (CLI) | payer OTHER, MEDICARE, SELFPAY ==
[2025-09-23 07:57] LABS: HCT 39.7 % (36.0-46.0); HGB 13.3 g/dL (11.2-15.7); MCH 29.0 pg (27.0-33.0); MCHC 33.5 % (32.0-36.0); MCV 87 fL (80-95); MPV 10.0 fL (8.0-11.0); Platelet Count 224 10^3/uL (130-400); RBC 4.59 10^6/uL (3.93-5.22); RDW 12.8 % (11.7-14.6); RDW-SD 40.2 fL; WBC 5.83 10^3/uL (4.4-10.8)
[2025-09-23 08:52] LABS: ALT 35 U/L (14-59); AST 18 U/L (15-37); Albumin 3.7 g/dL (3.4-5.0); Alkaline Phosphatase 77 U/L (46-116); Anion Gap 7.0 mmol/L (3-11); BUN 16 mg/dL (7-18); Bilirubin, Total 0.4 mg/dL (0.2-1.0); CO2 30.0 mmol/L (21.0-32.0); Calcium 8.6 mg/dL (8.5-10.1); Chloride 104 mmol/L (98-107); Estimated GFR 55.76 (mL/min/1.73m2); Glucose 103 mg/dL (74-106); Potassium 4.1 mmol/L (3.5-5.1); Sodium 141 mmol/L (136-145); Total Protein 7.2 g/dL (6.4-8.2); Vitamin B12 766 pg/mL (193-986)
[2025-09-23 18:45] LABS: FSH 101.4 mIU/mL (See Note)
[2025-09-26 10:10] LABS: Adrenocorticotropic Hormone, P 21 pg/mL
[2025-09-26 12:59] LABS: Albumin 61.7 % (55.8-66.1); Albumin g/dL 4.4 g/dL (3.6-5.2); Alpha 1 g/dL 0.30 g/dL (0.15-0.40); Alpha 2 g/dL 0.60 g/dL (0.50-1.00); Beta g/dL 0.80 g/dL (0.60-1.20); Gamma g/dL 1.00 g/dL (0.60-1.60); Total Protein 7.1 g/dL (6.3-8.2)
[2025-09-27 11:17] LABS: Estradiol, Mass Spectrometry <10 pg/mL
== END 2025-09-23 03:29 | disposition home or self-care (01) ==
PROVIDERS: PCP Family Medicine; Visit Provider Family Medicine
DX: I10 Essential (primary) hypertension (principal); R20.2 Paresthesia of skin; E23.6 Other disorders of pituitary gland; Z83.2 Family history of diseases of the blood and blood-forming organs and certain disorders involving the immune mechanism
CPT/HCPCS: 36415; 80053; 82533; 85027; 82024; 82607; 82670; 82679; 83001; 83003; 84165